=== PATIENT | male | born 1940 | race Caucasian/White ===

== ENCOUNTER 2016-05-28 06:26 | Day surgery (SDC) | payer MEDICARE, BC ==
[2016-05-21 13:57] VITALS: BMI 25.7
[~2016-05-28 06:26] MED LIST: ALPRAZolam 0.25 MG TAB PO PRN; ASPIRIN 325 MG TAB PO ONE; NITROGLYCERIN SL TABS 0.4 MG TAB SUBLINGUAL PRN; SODIUM CHLORIDE 0.9% 1,000 ML in EMPTY BAG 1 BAG IV ONE
[2016-05-28 07:04] VITALS: RESP 16; TEMP 98.3
[2016-05-28] MEDS ORDERED: LIDOCAINE 2% INJ 20 MG/ML (20 ML MDV) ONE (07:12)
[2016-05-28] MEDS ORDERED: diphenhydrAMINE 50 MG/ML 1 ML VIAL ONE (07:13)
[2016-05-28] MEDS ORDERED: VERAPAMIL 2.5 MG/ML 2 ML AMP ONE (07:13)
[2016-05-28] MEDS ORDERED: HEPARIN SODIUM 1,000 UNIT/ML VIAL ONE (07:13)
[2016-05-28] MEDS ORDERED: SODIUM CHLORIDE 0.9% (PF) 10 ML VIAL ONE (07:13)
[2016-05-28] MEDS ORDERED: fentaNYL (PF) 50 MCG/ML 2 ML AMP ONE (07:13)
[2016-05-28] MEDS ORDERED: diphenhydrAMINE 50 MG/ML 1 ML VIAL IVP ONE (07:45)
[2016-05-28] MEDS ORDERED: fentaNYL (PF) 50 MCG/ML 2 ML AMP IV ONE (07:45)
[2016-05-28] MEDS ORDERED: LIDOCAINE 2% INJ 20 MG/ML SQ ONE (07:48)
[2016-05-28] MEDS ORDERED: VERAPAMIL SYRINGE (5 MG/10 ML) INTRAARTER ONE (07:51)
[2016-05-28 07:52] LABS: Glucose,Whole Blood 176 mg/dL (75-99)
[2016-05-28] MEDS ORDERED: IOHEXOL 350 MG/ML 100 ML BOTTLE INJ ONE (08:01)
[2016-05-28] MEDS ORDERED: RX INFO: IV CONTRAST WAS GIVEN 1 EACH MISC MISCELLANE PRN (08:17)
[2016-05-28] MEDS ORDERED: CARBIDOPA-LEVODOPA 25-100 MG 1 EACH TAB PO SCH (08:30)
[2016-05-28] MEDS ORDERED: SODIUM CHLORIDE 0.9% 1,000 ML IV SCH (08:30)
[2016-05-28] MEDS ORDERED: GLIMEPIRIDE 1 MG TAB PO SCH (09:00)
[2016-05-28] MEDS ORDERED: ASPIRIN 81 MG CHEW PO SCH (09:00)
[2016-05-28] MEDS ORDERED: CHOLECALCIFEROL 1,000 UNIT TAB PO SCH (09:00)
[2016-05-28] MEDS ORDERED: NON-FORMULARY DRUG (Omeprazole [Omeprazole] 20 MG) PO SCH (09:00)
[2016-05-28] MEDS ORDERED: NON-FORMULARY DRUG (Cyanocobalamin (Vitamin B-12) [Vitamin B-12] 1,000 MCG) PO SCH (09:00)
[2016-05-28] MEDS ORDERED: ATORVASTATIN 40 MG TAB PO SCH (09:00)
[2016-05-28] MEDS ORDERED: METOPROLOL TARTRATE 25 MG TAB PO SCH (09:00)
[2016-05-28] MEDS ORDERED: ISOSORBIDE MONONITRATE ER 30 MG TAB.ER.24H PO SCH (09:00)
[2016-05-28 13:05] VITALS: BP 127/70; PULSE 60
--- NOTE | 2016-05-28 20:32 | CC ---
DATE OF SERVICE: Mr. Hauser 75-year-old male with known history of ( ), diabetes, hyperlipidemia, and a family history of coronary artery disease, who has been complaining of episode of progressive dyspnea as well as her throat discomfort. He had a stress test revealed an inferior wall fixed defect. In view of that, recommendation was made regarding cardiac catheterization. The procedure as well as the risks and complications were discussed with the patient who is in full understanding and agreement. 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 He was draped and prepped in conventional fashion. Using Xylocaine anesthesia and Seldinger technique, a 6 Divehi sheath was introduced in the right radial artery. Selective right and left coronary angiography was performed using 5 Divehi 3-1/2 Bend right and left Jourdan catheter. Multiple views of the coronary arteries including hemiaxial views were obtained. Following that, 5 Divehi tight pigtail catheter was introduced into the left ventricle and a 30 degrees NATH view of the left ventricle was obtained. Following that, catheter and sheaths were removed. Hemostasis was obtained with deployment of a TR band. There were no immediate complications. Patient is returned to his room in stable condition. FINDINGS: LEFT MAIN: This is a large-size vessel, bifurcating into the left circumflex, left anterior descending artery. Left main coronary artery is without any obstructive coronary artery disease. LEFT ANTERIOR DESCENDING CORONARY ARTERY: This is a large-size vessel reaching toward the apex with a wrap around the apex segment, giving rise to a large diagonal branch proximally. The left anterior descending artery has mild intimal disease 20% to 30% in the mid and distal segments without any evidence of high-grade stenosis. LEFT CIRCUMFLEX: This is a large nondominant vessel, giving rise to a large proximal obtuse marginal branch. The left circumflex and branches have no evidence of obstructive coronary artery disease. RIGHT CORONARY ARTERY: This vessel is totally occluded anteriorly with ipsilateral and contralateral collaterals. LEFT VENTRICULOGRAM: Left ventriculogram was performed in 30 degrees NATH view and revealed inferobasal hypokinesis. Ejection fraction is 45% to 50%. There was 2+ mitral regurgitation. HEMODYNAMICS: There was no gradient across the aortic valve. The left ventricular end-diastolic was 14 mmHg. CONCLUSION: 1. Chronically occluded right coronary artery was ipsilateral and contralateral collaterals. 2. Mild disease in the left anterior descending. 3. Mildly impaired left ventricular systolic function. RECOMMENDATIONS: In view of the findings and anatomy, recommend to maximize his medical therapy and depending on his progress, further recommendation will be made. Those findings and recommendations were discussed with the patient and his family who are in full understanding and agreement.
--- NOTE | 2016-05-28 20:44 | LTR ---
May 28, 2016 RE: Leandro Hauser Dear Dr. Gee: I had the pleasure of performing cardiac catheterization on Mr. Hauser at [facility] on the may. A full copy of procedure note will be forwarded to you. In brief, he was found to have chronically occluded right coronary artery with ipsilateral and contralateral collaterals with a mildly impaired left ventricular systolic function and based on those findings I will maximize his medical therapy and depending on his progress, further recommendation will be made. Thank you again for allowing me to participate in his care. Please feel to call for any questions. Sincerely, CONSUELO MUNOZ MD
[2016-05-28] MEDS ORDERED: CITALOPRAM HYDROBROMIDE 10 MG TAB PO SCH (21:00)
== END 2016-05-28 13:07 | disposition home or self-care (01) ==
LOC: CATHCVL 06:26
PROVIDERS: ATTEND Internal Medicine Interventional Cardiology
DX: I25.119 Atherosclerotic heart disease of native coronary artery with unspecified angina pectoris (principal); I34.0 Nonrheumatic mitral (valve) insufficiency; I25.82 Chronic total occlusion of coronary artery; I51.9 Heart disease, unspecified; Z87.891 Personal history of nicotine dependence; Z82.49 Family history of ischemic heart disease and other diseases of the circulatory system; E78.2 Mixed hyperlipidemia; G25.0 Essential tremor; E11.9 Type 2 diabetes mellitus without complications; Z79.84 Long term (current) use of oral hypoglycemic drugs; Z79.82 Long term (current) use of aspirin; Z79.899 Other long term (current) drug therapy; Z88.2 Allergy status to sulfonamides
CPT/HCPCS: 93458; C1894; C1769; J2001; J1200; Q9967; J3010; J1644

== ENCOUNTER → 2016-08-11 | Outpatient (CLI) | payer MEDICARE, BC ==
[2016-08-11 09:09] LABS: ALT 16 U/L (21-72); AST 20 U/L (17-59); Cholesterol 97 mg/dL (<200); HDL Cholesterol 29 mg/dL (40-60); Triglycerides 106 mg/dL (<150)
== END | disposition home or self-care (01) ==
LOC: LABWHC1 08:08
PROVIDERS: ATTEND Internal Medicine Interventional Cardiology
DX: E78.2 Mixed hyperlipidemia (principal)
CPT/HCPCS: 36415; 80061; 84450; 84460

== ENCOUNTER → 2017-02-05 | Outpatient (CLI) | payer MEDICARE, BC ==
[2017-02-05 09:08] LABS: ALT 23 U/L (21-72); AST 18 U/L (17-59); Alkaline Phosphatase 67 U/L (38-126); Anion Gap 9 mmol/L; Blood Urea Nitrogen 13 mg/dL (9-20); Calcium 9.1 mg/dL (8.4-10.2); Carbon Dioxide 29 mmol/L (22-30); Chloride 103 mmol/L (98-107); Cholesterol 97 mg/dL (<200); Glucose 163 mg/dL (74-99); HDL Cholesterol 33 mg/dL (40-60); Non-African American GFR(MDRD) >60 (>60 ml/min/1.73 sqM); Potassium 4.5 mmol/L (3.5-5.1); Sodium 141 mmol/L (137-145); Total Bilirubin 1.2 mg/dL (0.2-1.3); Total Protein 6.3 g/dL (6.3-8.2)
== END | disposition home or self-care (01) ==
LOC: LABWHC1 08:19
PROVIDERS: ATTEND Internal Medicine Interventional Cardiology
DX: E78.2 Mixed hyperlipidemia (principal)
CPT/HCPCS: 36415; 80053; 80061

== ENCOUNTER → 2017-07-29 | Outpatient (CLI) | payer MEDICARE ==
[2017-07-29 12:19] LABS: ALT 15 U/L (21-72); AST 15 U/L (17-59); Cholesterol 95 mg/dL (<200); HDL Cholesterol 36 mg/dL (40-60); LDL Cholesterol,Calculated 39 mg/dL (0-99); Triglycerides 102 mg/dL (<150)
== END | disposition home or self-care (01) ==
LOC: LABWHC1 11:48
PROVIDERS: ATTEND Internal Medicine Interventional Cardiology
DX: E78.2 Mixed hyperlipidemia (principal)
CPT/HCPCS: 36415; 80061; 84450; 84460

== ENCOUNTER 2017-12-16 07:19 | Day surgery (SDC) | payer MEDICARE ==
[2017-12-14 10:08] VITALS: BMI 26.4
[~2017-12-16 07:19] MED LIST changes: -ALPRAZolam 0.25 MG TAB PO PRN; -ASPIRIN 325 MG TAB PO ONE; +LACTATED RINGERS 1,000 ML IV SCH; +MOXIFLOXACIN HCL 0.5% DROPS 3 ML BTL OP ONE; -NITROGLYCERIN SL TABS 0.4 MG TAB SUBLINGUAL PRN; -SODIUM CHLORIDE 0.9% 1,000 ML in EMPTY BAG 1 BAG IV ONE; +TETRACAINE 0.5% OPHTH (PF) DROPS 4 ML BTL OP ONE; +TIMOLOL 0.5% OPHTH DROPS 5 ML BTL OP ONE
[2017-12-16] MEDS: PHENYLEPHRINE 2.5% OPHTH DRP 2ML OP NR ×3 (07:56→08:13)
[2017-12-16] MEDS: CYCLOPENTOLATE 1% OPHTH SOLN 2 ML BTL OP ONE ×3 (08:02→08:15)
[2017-12-16 08:06] VITALS: RESP 16; TEMP 98.8
[2017-12-16 08:07] LABS: Glucose,Whole Blood 157 mg/dL (75-99)
[2017-12-16] MEDS ORDERED: fentaNYL (PF) 50 MCG/ML 2 ML AMP ONE (08:57)
[2017-12-16] MEDS ORDERED: MIDAZOLAM 2 MG/2 ML VIAL ONE (08:57)
[2017-12-16] MEDS ORDERED: BALANCED SALT IRRIG SOLN COMB2 15 ML IRRIG.SOLN INTRAOCULA ONE (09:06)
[2017-12-16] MEDS ORDERED: TETRACAINE 0.5% OPHTH (PF) DROPS 4 ML BTL RIGHT EYE ONE (09:06)
[2017-12-16] MEDS ORDERED: HYALURONATE SODIUM INTRAOCULAR 1 EACH SYRINGE (12MG/ML) INTRAOCULA ONE (09:07)
[2017-12-16] MEDS ORDERED: EPINEPHrine (PF) 0.3 ML in BALANCED SALT IRRIG SOLN COMB2 500 ML IRRIGATION ONE (09:08)
[2017-12-16] MEDS ORDERED: BALANCED SALT IRRIG SOLN COMB2 15 ML IRRIG.SOLN IRRIGATION ONE (09:13)
[2017-12-16] MEDS ORDERED: EPINEPHrine (PF) 1 MG/ML AMP IRRIGATION ONE (09:13)
[2017-12-16] MEDS ORDERED: LIDOCAINE 1% (PF) 10MG/ML VIAL MISCELLANE ONE (09:13)
--- NOTE | 2017-12-16 09:23 | P.OP ---
Date of Procedure: 12/16/17 Preoperative Diagnosis: NS & CS Postoperative Diagnosis: same Procedure(s) Performed: PIOL, OD Implants: PCB0 18.00 Anesthesia: MAC Surgeon: Jude Biggs Estimated Blood Loss (ml): 0 Pathology: none sent Condition: stable Disposition: same day Indications for Procedure: blurry vision Operative Findings: No complications
[2017-12-16 09:30] VITALS: PULSE 69
[2017-12-16 09:53] VITALS: BP 109/59
--- NOTE | 2017-12-16 10:00 | OP ---
OPERATIVE REPORT DATE OF SURGERY: 12/16/2017 PROCEDURES: Phacoemulsification of cataract and intraocular lens implant of the right eye. PREOPERATIVE DIAGNOSIS: Nuclear sclerosis and cortical sclerosis. POSTOPERATIVE DIAGNOSIS:: Nuclear sclerosis and cortical sclerosis. OPERATION:: Clear cornea phacoemulsification of cataract right eye. ESTIMATED BLOOD LOSS:: Zero. SPECIMEN TAKEN:: None. NARRATIVE:: After obtaining the appropriate consent, the patient was brought to the Operating Room where the patient was placed under cardiac monitoring and prepped and draped in the usual sterile manner. At the 11 o'clock position a 15 degree super sharp blade was used to create a paracentesis followed by instillation of 1% Xylocaine MPF 50:50 mix with BSS into the anterior chamber. This was followed by to stabilize the anterior chamber. At the 9 o'clock position a self-sealing corneal flap incision was created using 2.8 mm rebecca keratome. A cystatome was used to initiate a continuous tear capsulorrhexis which was completed with the Utrata forceps. A Binkhorst cannula was used to hydrodissect the lens nucleus followed by hydrodelineation. Phacoemulsification of the lens was performed utilizing phacochop in 15.36 seconds at 8% power. The remaining cortical material was removed using the irrigation aspiration mode followed by additional 1% Xylocaine MPF into the anterior chamber followed by viscoelastic to stabilize the capsular bag. An KEREN PCB00 18.0 diopters posterior chamber lens was placed into the capsular bag without difficulty. The remaining viscoelastic material was removed from the anterior chamber with the irrigation/aspiration. Balanced salt solution was used to normalize the intraocular pressure. The incision was checked for watertight integrity. The patient then received two drops of 0.5% timolol followed by two drops Vigamox, was lightly patched and shielded in the usual manner. There were no complications from the procedure. The patient tolerated the procedure well and was returned to recovery in good condition. MMODL / IJN: [id number] /
== END 2017-12-16 10:18 | disposition home or self-care (01) ==
LOC: OR 07:19
PROVIDERS: ATTEND Ophthalmology
DX: H25.13 Age-related nuclear cataract, bilateral (principal); H25.011 Cortical age-related cataract, right eye; E11.3291 Type 2 diabetes mellitus with mild nonproliferative diabetic retinopathy without macular edema, right eye; H53.032 Strabismic amblyopia, left eye; H52.13 Myopia, bilateral; H04.123 Dry eye syndrome of bilateral lacrimal glands; H00.026 Hordeolum internum left eye, unspecified eyelid; H00.023 Hordeolum internum right eye, unspecified eyelid; H54.40 Blindness, one eye, unspecified eye; F32.9 Major depressive disorder, single episode, unspecified; I25.10 Atherosclerotic heart disease of native coronary artery without angina pectoris; I11.9 Hypertensive heart disease without heart failure; E78.5 Hyperlipidemia, unspecified; K21.9 Gastro-esophageal reflux disease without esophagitis; I25.2 Old myocardial infarction; Z79.84 Long term (current) use of oral hypoglycemic drugs; Z79.82 Long term (current) use of aspirin; Z79.899 Other long term (current) drug therapy; Z88.2 Allergy status to sulfonamides; Z87.891 Personal history of nicotine dependence
CPT/HCPCS: 66984; C1780; J2250; J0171; J3010; J2001

== ENCOUNTER → 2018-02-24 | Outpatient (CLI) | payer MEDICARE ==
[2018-02-24 12:03] LABS: Basophils # (A) 0.1 k/uL (0-0.2); Basophils % (A) 1 %; Eosinophils # (A) 0.2 k/uL (0-0.7); Eosinophils % (A) 3 %; HCT 51.5 % (39.0-53.0); HGB 16.8 gm/dL (13.0-17.5); Lymphocytes # (A) 1.8 k/uL (1.0-4.8); Lymphocytes % (A) 23 %; MCH 28.5 pg (25.0-35.0); MCHC 32.6 g/dL (31.0-37.0); MCV 87.4 fL (80.0-100.0); Mean Platelet Volume 8.2; Monocytes # (A) 0.5 k/uL (0-1.0); Monocytes % (A) 6 %; Neutrophils # (A) 5.1 k/uL (1.3-7.7); Neutrophils % (A) 65 %; Platelet Count 253 k/uL (150-450); RBC 5.89 m/uL (4.30-5.90); RDW 13.2 % (11.5-15.5); WBC 7.8 k/uL (3.8-10.6)
[2018-02-24 12:31] LABS: Calcium 9.7 mg/dL (8.4-10.2); Potassium 4.6 mmol/L (3.5-5.1); Total Bilirubin 1.2 mg/dL (0.2-1.3); Total Protein 6.8 g/dL (6.3-8.2)
[2018-02-24 12:41] LABS: T4, Free (Free Thyroxine) 1.07 ng/dL (0.78-2.19)
[2018-02-24 19:11] LABS: Hemoglobin A1C 7.8 % (4.0-6.0)
== END | disposition home or self-care (01) ==
LOC: LABWHC1 10:17
PROVIDERS: ATTEND Internal Medicine Interventional Cardiology
DX: G20 Parkinson's disease (principal); E78.00 Pure hypercholesterolemia, unspecified; E11.9 Type 2 diabetes mellitus without complications; E78.2 Mixed hyperlipidemia
CPT/HCPCS: 36415; 80053; 80061; 83036; 84439; 84443; 85025

== ENCOUNTER → 2018-06-08 | Outpatient (CLI) | payer MEDICARE ==
--- NOTE | 2018-06-08 12:50 | MR ---
MR brain without contrast HISTORY: Parkinson's disease Multiplanar multisequence imaging through the brain There are normal vascular flow voids. Atrophy is noted. Scattered foci of hyperintensity in the periv entricular deep white matter on inversion recovery T2-weighted sequences, approximately 3-5 lesions a re present. No hemorrhage or hydrocephalus. Inflammatory change present in the bilateral maxillary si nuses, there may be polyp disease. Orbits show symmetric appearance. Corpus callosum, pituitary, cerv ical medullary junction, cerebellopontine angles are normal. IMPRESSION: Nonspecific white matter demyelination likely due to chronic small vessel ischemia, age r elated atrophy. Sinus disease.
== END | disposition home or self-care (01) ==
LOC: RADMRIMAIN 08:50
PROVIDERS: ATTEND Psychiatry & Neurology Neurology
DX: R90.89 Other abnormal findings on diagnostic imaging of central nervous system (principal); G20 Parkinson's disease
CPT/HCPCS: 70551

== ENCOUNTER → 2018-09-27 | Outpatient (CLI) | payer MEDICARE ==
[2018-09-27 17:19] LABS: LDL Cholesterol,Calculated 52.6 mg/dL (0.0-131.0); VLDL Calculation 32.4 mg/dL (5.00-40.00)
== END | disposition home or self-care (01) ==
LOC: LABWHC1 08:32
PROVIDERS: ATTEND Nurse Practitioner Adult Health
DX: E78.2 Mixed hyperlipidemia (principal)
CPT/HCPCS: 36415; 80061; 84450; 84460

== ENCOUNTER → 2019-03-09 | Outpatient (CLI) | payer MEDICARE ==
[2019-03-09 18:36] LABS: Chol/HDL Ratio 3.41; LDL Cholesterol,Calculated 50.4 mg/dL (0.0-131.0); VLDL Calculation 26.6 mg/dL (5.00-40.00)
== END | disposition home or self-care (01) ==
LOC: LABWHC1 10:38
PROVIDERS: ATTEND Nurse Practitioner Adult Health
DX: E78.2 Mixed hyperlipidemia (principal)
CPT/HCPCS: 36415; 80061; 84450; 84460

== ENCOUNTER → 2020-03-12 | Outpatient (CLI) | payer MEDICARE ==
[~2020-03-12] MED LIST changes: -LACTATED RINGERS 1,000 ML IV SCH; -MOXIFLOXACIN HCL 0.5% DROPS 3 ML BTL OP ONE; +REGADENOSON 0.4 MG/5 ML SYRINGE IV ONE; -TETRACAINE 0.5% OPHTH (PF) DROPS 4 ML BTL OP ONE; -TIMOLOL 0.5% OPHTH DROPS 5 ML BTL OP ONE
--- NOTE | 2020-03-12 12:42 | NM ---
EXAMINATION TYPE: NM stress lexiscan cardiolite DATE OF EXAM: 03/12/2020 COMPARISON: NONE HISTORY: Chest pain TECHNIQUE: After the intravenous administration of 10.69 mCi Tc 99m Sestamibi - Cardiolite resting S PECT images acquired 45 minutes post injection. The patient received 0.4mg Lexiscan, 24.4 mCi Tc 99m Sestamibi - Stress images obtained [address] injection FINDINGS: Review of stress and rest SPECT images demonstrates decreased uptake on stress and rest images along the inferior wall the left ventricle, some decreased uptake is present along the inferolateral left v entricle towards the base of the heart more so on stress than on rest images. Gated analysis shows n ormal wall motion with an estimated left ventricular ejection fraction of 72 %. 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 Consider echo correlation for eleva mckenna ejection fraction A Yellow level critical message alert has been initiated for Jay Gee MD via the [employer] Critical Results System on 03/12/2020 12:39 PM. This message alert has been sent to Jay Gee MD v chiqui the preferences provided by the clinician for the receipt of Radiology Critical Findings. Message ID [id number].
--- NOTE | 2020-03-12 13:54 | P.STRESS ---
- Stress Test Note Stress Test Results/Findings: Exam Performed: NM stress lexiscan cardiolite Exam Date: 03/12/20 Reason for Exam: CHEST PAIN Height: 5 ft 11 in Weight: 81.8 kg Protocol: LEXISCAN Stage: N/A Duration of Exercise: 6 MINUTES Resting Heart Rate: 59 Resting Blood Pressure: 152/82 Maximum Achieved Heart Rate: 80 Maximum Achieved Blood Pressure: 152/82 85% PMHR: N/A 100% PMHR: N/A METS: N/A Technologist Comment: Stress Test Results/Findings: At baseline EKG showed normal sinus rhythm,normal axis, nonspecific T-wave inversions in aVR and V1. Patient recieved IV infusion of Lexiscan 0.4mg and at peak infusion EKG showed o significant change from baseline. Conclusions: 1. Normal EKG response to Lexiscan infusion 2. Nuclear imaging to be reported separately.
== END | disposition home or self-care (01) ==
LOC: RADNMMAIN 08:34
PROVIDERS: ATTEND Internal Medicine Geriatric Medicine
DX: R07.9 Chest pain, unspecified (principal)
CPT/HCPCS: 93017; 78452; A9500; J2785

== ENCOUNTER → 2020-03-29 | Outpatient (CLI) | payer MEDICARE ==
--- NOTE | 2020-03-29 17:50 | ECHOF ---
Referral Reason:R94.31 abnormal EKG report MEASUREMENTS -------- HEIGHT: 180.3 cm WEIGHT: 81.6 kg BP: RVIDd: 2.7 cm (< 3.3) IVSd: 1.2 cm (0.6 - 1.1) LVIDd: 4.4 cm (3.9 - 5.3) LVPWd: 1.5 cm (0.6 - 1.1) IVSs: 2.2 cm LVIDs: 2.0 cm LVPWs: 2.2 cm LAESV Index (A-L): 24.36 ml/m Ao Diam: 3.6 cm (2.0 - 3.7) AV Cusp: 2.1 cm (1.5 - 2.6) LA Diam: 2.9 cm (2.7 - 3.8) MV EXCURSION: 19.027 mm (> 18.000) MV EF SLOPE: 36 mm/s (70 - 150) EPSS: 0.4 cm MV E Juan Carlos: 0.85 m/s MV DecT: 256 ms MV A Juan Carlos: 0.74 m/s MV E/A Ratio: 1.16 AR PHT: 871 ms RAP: 5.00 mmHg RVSP: 17.14 mmHg FINDINGS -------- This was a technically good study. The left ventricular size is normal. There is mild concentric left ventricular hypertrophy. Overa ll left ventricular systolic function is normal with, an EF between 55 - 60 %. Normal LAP Grade 1 D iastolic Dysfunction The right ventricle is normal in size. The left atrial size is normal. Normal LA size by volume 22+/-6 ml/m2. The right atrial size is normal. Aortic valve is trileaflet and is mildly thickened. There is mild aortic regurgitation. The mitral valve is normal. Mild mitral regurgitation is present. The tricuspid valve appears structurally normal. Mild tricuspid regurgitation present. Right vent ricular systolic pressure is normal at < 35 mmHg. There is no pulmonic regurgitation present. The aortic root size is normal. Normal inferior vena cava with normal inspiratory collapse consistent with estimated right atrial pre ssure of 5 mmHg. Echo free space may represent effusion or a pericardial fat pad. CONCLUSIONS -------- 1. The left ventricular size is normal. 2. There is mild concentric left ventricular hypertrophy. 3. Overall left ventricular systolic function is normal with, an EF between 55 - 60 %. 4. Normal LAP Grade 1 Diastolic Dysfunction 5. Aortic valve is trileaflet and is mildly thickened. 6. There is mild aortic regurgitation. 7. Mild mitral regurgitation is present. 8. Mild tricuspid regurgitation present. 9. Echo free space may represent effusion or a pericardial fat pad. LATHER APPRENTICE: Елена Chiu RDCS
== END | disposition home or self-care (01) ==
LOC: RADECHMAIN 12:36
PROVIDERS: ATTEND Internal Medicine Geriatric Medicine
DX: I08.3 Combined rheumatic disorders of mitral, aortic and tricuspid valves (principal)
CPT/HCPCS: 93306

== ENCOUNTER 2020-06-08 11:15 | Inpatient (IN) | payer MEDICARE ==
--- NOTE | 2020-06-08 11:45 | ED ---
General Adult HPI - General Chief complaint: Shortness of Breath Stated complaint: water retention-sent by PCP Time Seen by Provider: 06/08/20 11:20 Source: patient, RN/MD, RN notes reviewed Mode of arrival: wheelchair Limitations: no limitations - History of Present Illness Initial comments: Patient is a pleasant 79-year-old male presenting to the emergency Department with urinary retention and shortness of breath. Onset of symptoms was a couple months ago. Symptoms have slowly progressed. Patient has developed some swelling of his legs. Patient states he still able to urinate but only a small amount comes out. Dyspnea does worsen with exertion. No chest pain. Patient has been somewhat fatigued. Patient did see Dr. Gee who advised patient come to the emergency department. - Related Data Home Medications Medication Instructions Recorded Confirmed Aspirin 81 mg PO DAILY 10/20/13 06/08/20 Metoprolol Tartrate [Lopressor] 25 mg PO BID 05/21/16 06/08/20 Atorvastatin [Lipitor] 40 mg PO HS 12/14/17 06/08/20 Glimepiride [Amaryl] 4 mg PO BID 12/14/17 06/08/20 Isosorbide Mononitrate ER [Imdur] 60 mg PO DAILY 12/14/17 06/08/20 metFORMIN HCL [Glucophage] 500 mg PO BID 12/14/17 06/08/20 ALPRAZolam [Xanax] 0.25 mg PO BID PRN 06/08/20 06/08/20 Bumetanide [BUMEX] 2 mg PO DAILY 06/08/20 06/08/20 Carbidopa-Levodopa 25-100 mg 1 tab PO QID 06/08/20 06/08/20 [Sinemet 25-100] Donepezil [Aricept] 10 mg PO HS 06/08/20 06/08/20 Escitalopram [Lexapro] 20 mg PO DAILY 06/08/20 06/08/20 Nitroglycerin Sl Tabs [Nitrostat] 0.4 mg SL Q5M PRN 06/08/20 06/08/20 Spironolactone [Aldactone] 25 mg PO DAILY 06/08/20 06/08/20 amantadine HCL [Amantadine] 100 mg PO BID 06/08/20 06/08/20 Allergies Allergy/AdvReac Type Severity Reaction Status Date / Time Sulfa (Sulfonamide Allergy Rash/Hives Verified 06/08/20 11:20 Antibiotics) Review of Systems ROS Statement: Those systems with pertinent positive or pertinent negative responses have been documented in the HPI. ROS Other: All systems not noted in ROS Statement are negative. Constitutional: Denies: fever Eyes: Denies: eye pain ENT: Denies: ear pain Respiratory: Reports: dyspnea. Denies: cough Cardiovascular: Denies: chest pain Endocrine: Reports: fatigue Gastrointestinal: Denies: abdominal pain Genitourinary: Reports: as per HPI Musculoskeletal: Denies: back pain Skin: Denies: rash Past Medical History Past Medical History: Heart Failure, Diabetes Mellitus, Eye Disorder, GERD/Reflux, Hyperlipidemia, Hypertension, Musculoskeletal Disorder Additional Past Medical History / Comment(s): SHORTNESS OF BREATH, bilat cataracts History of Any Multi-Drug Resistant Organisms: None Reported Past Surgical History: Orthopedic Surgery Additional Past Surgical History / Comment(s): RT HAND CYST REMOVED. LT EYE SX R/T MUSCLE PROB. COLONOSCOPY. Past Anesthesia/Blood Transfusion Reactions: No Reported Reaction Past Psychological History: Depression Smoking Status: Never smoker Past Alcohol Use History: None Reported Past Drug Use History: None Reported - Past Family History Mother Family Medical History: Coronary Artery Disease (CAD) Additional Family Medical History / Comment(s): HX CABG, VALVE REPLACEMENT. General Exam Limitations: no limitations General appearance: alert, in no apparent distress Head exam: Present: normocephalic Eye exam: Present: normal appearance Neck exam: Present: normal inspection Respiratory exam: Present: decreased breath sounds (Bilateral bases) Cardiovascular Exam: Present: regular rate, normal rhythm GI/Abdominal exam: Present: soft. Absent: tenderness Extremities exam: Present: pedal edema. Absent: calf tenderness Neurological exam: Present: alert Psychiatric exam: Present: normal affect, normal mood Skin exam: Present: normal color Course Vital Signs 06/08/20 06/08/20 06/08/20 11:17 13:31 13:46 Temperature 98.6 F Pulse Rate 65 67 Respiratory 22 16 20 Rate Blood Pressure 146/72 108/74 O2 Sat by Pulse 97 98 Oximetry EKG Findings - EKG Comments: EKG Findings:: Normal sinus rhythm at 70. ID 200. QRS 96. QT 390. QTC 421. Normal axis. Normal QRS. No acute ST change. Medical Decision Making - Medical Decision Making Patient reevaluated and updated. Case was again discussed with Dr. Gee who would like his patient admitted. - Lab Data Result diagrams: 06/08/20 11:41 06/08/20 11:41 Lab Results 06/08/20 06/08/20 06/08/20 Range/Units 11:41 11:41 11:41 WBC 9.0 (3.8-10.6) k/uL RBC 4.95 (4.30-5.90) m/uL Hgb 14.9 (13.0-17.5) gm/dL Hct 43.4 (39.0-53.0) % MCV 87.8 (80.0-100.0) fL MCH 30.1 (25.0-35.0) pg MCHC 34.3 (31.0-37.0) g/dL RDW 13.2 (11.5-15.5) % Plt Count 255 (150-450) k/uL MPV 8.3 Neutrophils % 68 % Lymphocytes % 19 % Monocytes % 8 % Eosinophils % 3 % Basophils % 1 % Neutrophils # 6.1 (1.3-7.7) k/uL Lymphocytes # 1.7 (1.0-4.8) k/uL Monocytes # 0.7 (0-1.0) k/uL Eosinophils # 0.3 (0-0.7) k/uL Basophils # 0.1 (0-0.2) k/uL PT 10.4 (9.0-12.0) sec INR 1.0 (<1.2) APTT 22.2 (22.0-30.0) sec Sodium 138 (137-145) mmol/L Potassium 3.8 (3.5-5.1) mmol/L Chloride 96 L (98-107) mmol/L Carbon Dioxide 31 H (22-30) mmol/L Anion Gap 11 mmol/L BUN 34 H (9-20) mg/dL Creatinine 1.09 (0.66-1.25) mg/dL Est GFR (CKD-EPI)AfAm 74 (>60 ml/min/1.73 sqM) Est GFR (CKD-EPI)NonAf 64 (>60 ml/min/1.73 sqM) Glucose 298 H (74-99) mg/dL Calcium 9.3 (8.4-10.2) mg/dL Total Bilirubin 0.8 (0.2-1.3) mg/dL AST 25 (17-59) U/L ALT 10 (4-49) U/L Alkaline Phosphatase 90 (38-126) U/L Creatine Kinase 126 (55-170) U/L Troponin I (0.000-0.034) ng/mL NT-Pro-B Natriuret Pep pg/mL Total Protein 7.0 (6.3-8.2) g/dL Albumin 4.4 (3.5-5.0) g/dL Urine Color Urine Appearance (Clear) Urine pH (5.0-8.0) Ur Specific [place] (1.001-1.035) Urine Protein (Negative) Urine Glucose (UA) (Negative) Urine Ketones (Negative) Urine Blood (Negative) Urine Nitrite (Negative) Urine Bilirubin (Negative) Urine Urobilinogen (<2.0) mg/dL Ur Leukocyte Esterase (Negative) 06/08/20 06/08/20 06/08/20 Range/Units 11:41 11:41 11:41 WBC (3.8-10.6) k/uL RBC (4.30-5.90) m/uL Hgb (13.0-17.5) gm/dL Hct (39.0-53.0) % MCV (80.0-100.0) fL MCH (25.0-35.0) pg MCHC (31.0-37.0) g/dL RDW (11.5-15.5) % Plt Count (150-450) k/uL MPV Neutrophils % % Lymphocytes % % Monocytes % % Eosinophils % % Basophils % % Neutrophils # (1.3-7.7) k/uL Lymphocytes # (1.0-4.8) k/uL Monocytes # (0-1.0) k/uL Eosinophils # (0-0.7) k/uL Basophils # (0-0.2) k/uL PT (9.0-12.0) sec INR (<1.2) APTT (22.0-30.0) sec Sodium (137-145) mmol/L Potassium (3.5-5.1) mmol/L Chloride (98-107) mmol/L Carbon Dioxide (22-30) mmol/L Anion Gap mmol/L BUN (9-20) mg/dL Creatinine (0.66-1.25) mg/dL Est GFR (CKD-EPI)AfAm (>60 ml/min/1.73 sqM) Est GFR (CKD-EPI)NonAf (>60 ml/min/1.73 sqM) Glucose (74-99) mg/dL Calcium (8.4-10.2) mg/dL Total Bilirubin (0.2-1.3) mg/dL AST (17-59) U/L ALT (4-49) U/L Alkaline Phosphatase (38-126) U/L Creatine Kinase (55-170) U/L Troponin I <0.012 (0.000-0.034) ng/mL NT-Pro-B Natriuret Pep 180 pg/mL Total Protein (6.3-8.2) g/dL Albumin (3.5-5.0) g/dL Urine Color Colorless Urine Appearance Clear (Clear) Urine pH 5.5 (5.0-8.0) Ur Specific [place] 1.006 (1.001-1.035) Urine Protein Negative (Negative) Urine Glucose (UA) 3+ H (Negative) Urine Ketones Negative (Negative) Urine Blood Negative (Negative) Urine Nitrite Negative (Negative) Urine Bilirubin Negative (Negative) Urine Urobilinogen <2.0 (<2.0) mg/dL Ur Leukocyte Esterase Negative (Negative) - Radiology Data Radiology results: image reviewed (Chest x-ray shows no acute process) Disposition Clinical Impression: Urinary retention, COPD (chronic obstructive pulmonary disease), Dyspnea Disposition: ADMITTED IP TO THIS HOSP Is patient prescribed a controlled substance at d/c from ED?: No Referrals: Jay Gee MD [Primary Care Provider] - 1-2 days Decision Time: 14:26
[2020-06-08 11:58] LABS: Basophils # (A) 0.1 k/uL (0-0.2); Basophils % (A) 1 %; Eosinophils # (A) 0.3 k/uL (0-0.7); Eosinophils % (A) 3 %; HCT 43.4 % (39.0-53.0); HGB 14.9 gm/dL (13.0-17.5); Lymphocytes # (A) 1.7 k/uL (1.0-4.8); Lymphocytes % (A) 19 %; MCH 30.1 pg (25.0-35.0); MCHC 34.3 g/dL (31.0-37.0); MCV 87.8 fL (80.0-100.0); Mean Platelet Volume 8.3; Monocytes # (A) 0.7 k/uL (0-1.0); Monocytes % (A) 8 %; Neutrophils # (A) 6.1 k/uL (1.3-7.7); Neutrophils % (A) 68 %; Platelet Count 255 k/uL (150-450); RBC 4.95 m/uL (4.30-5.90); RDW 13.2 % (11.5-15.5)
[2020-06-08 12:03] LABS: Appearance,Urine Clear (Clear); Bilirubin,Urine Negative (Negative); Blood,Urine Negative (Negative); Color,Urine Colorless; Glucose,Urine (UA) 3+ (Negative); Ketones,Urine Negative (Negative); Leukocyte Esterase,Urine Negative (Negative); Nitrite,Urine Negative (Negative); PH, Urine 5.5 (5.0-8.0); Protein,Urine Negative (Negative); Specific Gravity,Urine 1.006 (1.001-1.035); Urobilinogen,Urine <2.0 mg/dL (<2.0)
[2020-06-08 12:08] LABS: Partial Thromboplastin Time 22.2 sec (22.0-30.0); Prothrombin Time 10.4 sec (9.0-12.0)
[2020-06-08 12:09] LABS: Albumin 4.4 g/dL (3.5-5.0); Calcium 9.3 mg/dL (8.4-10.2); Potassium 3.8 mmol/L (3.5-5.1); Total Bilirubin 0.8 mg/dL (0.2-1.3)
--- NOTE | 2020-06-08 12:19 | XR ---
EXAMINATION TYPE: XR chest 2V DATE OF EXAM: 06/08/2020 COMPARISON: Chest CT August 28, 2016 HISTORY: Shortness of breath and lower extremity swelling. TECHNIQUE: Frontal and lateral views of the chest are obtained. FINDINGS: There is mild underlying emphysematous change without suspicious new focal air space opaci ty, pleural effusion, or pneumothorax seen. The cardiac silhouette size is stable and within normal limits. Mild to moderate multilevel spurring in the spine. IMPRESSION: No acute cardiopulmonary process.
[2020-06-08] MEDS ORDERED: IPRATROPIUM-ALBUTEROL 3 ML NEB INHALATION PRN (14:35)
[2020-06-08] MEDS ORDERED: CYCLOBENZAPRINE 5 MG TAB PO STA (14:47)
[2020-06-08] MEDS ORDERED: NITROGLYCERIN SL TABS 0.4 MG TAB SUBLINGUAL PRN (16:04)
[2020-06-08] MEDS ORDERED: ALPRAZolam 0.25 MG TAB PO PRN (16:04)
[2020-06-08] MEDS: metFORMIN 500 MG TAB PO SCH (17:13)
[2020-06-08] MEDS: CARBIDOPA-LEVODOPA 25-100 MG 1 EACH TAB PO SCH ×2 (17:13→23:30)
[2020-06-08 17:42] LABS: Glucose,Whole Blood 122 mg/dL (75-99)
[2020-06-08] MEDS: IPRATROPIUM-ALBUTEROL 3 ML NEB INHALATION SCH ×2 (20:09→20:53)
[2020-06-08 22:26] LABS: Glucose,Whole Blood 131 mg/dL (75-99)
[2020-06-08] MEDS: HEPARIN SODIUM,PORCINE 5,000 UNIT/ML 1 ML VIAL SQ SCH (22:35)
[2020-06-08] MEDS: FUROSEMIDE 10 MG/ML 4 ML VIAL IV SCH (22:35)
[2020-06-08] MEDS: ATORVASTATIN 40 MG TAB PO SCH (22:35)
[2020-06-08] MEDS: DONEPEZIL 10 MG TAB PO SCH (23:31)
[2020-06-08] MEDS: GLIMEPIRIDE 4 MG TAB PO SCH (23:31)
--- NOTE | 2020-06-08 23:35 | P.HPIM ---
History of Present Illness H&P Date: 06/08/20 Chief Complaint: Altered mental status, urinary retention, fluid overload, a dvanced [facility] 79-year-old male one of my office patient with past medical history of atherosclerotic heart disease, type 2 diabetes, Parkinson disease, hypertension, severe BPH who has been having significant problem with mobility lately with abnormal balance and gait developed to have worsening mental status in the last few days with low-grade temperature with frequency urgency with more hesitancy not been able to pass much urine at the time. Patient also has been having problem with edema and worsening symptom with congestive heart failure has not been taking his diuretics on regular basis. Patient has been having much worsening memory is Parkinson disease multiple falls lately, was seen and evaluated demurs department had significant urinary retention with Roberts catheter insertion had 850 mL collected right away his blood sugars mildly elevated urine was negative for infection blood sugar was mildly high at 298, his troponin was negative, Covid 19 was negative. Review of Systems CONSTITUTIONAL: Well-developed no acute respiratory distress. EYES: No icterus sclerae, no conjunctivitis. EARS, NOSE, MOUTH, THROAT, and FACE: No sore throat, lymphadenopathy, carotid bruits or deformity. RESPIRATORY: No SOB cough or wheezes. CARDIOVASCULAR: No chest pain positive PND, orthopnea and edema GASTROINTESTINAL: No Abd pain, Nausea or vomiting, no Diarrhea or constipation, No GI Bleed, no distention or masses. GENITOURINARY: Negative for Hematuria or UTI, no kidney stones. INTEGUMENT/BREAST: Negative for any muscular injury with mild osteoarthritis.. HEMATOLOGIC/LYMPHATIC: Negative for bleed or purpura. MUSCULOSKELTAL: Negative for Myalgia or arthralgia. NEURLOGICAL: Mental status change, abnormal balance and gait, worsening Parkinson disease BEHAVIORAL/PSYCH: Mild confusion and worsening memory. ENDOCRINE: Negative. Social history: Patient smoked pack a day for 20 years he quit in 1983, does not drink alcohol, is and lives with his has been retired for the last 15 years. Family history: Patient's father in his late 80s from CAD and advance memory loss, mother dying in her 70s from was remarkable for cancer, patient has 2 children with no major medical problem. Past Medical History Past Medical History: Heart Failure, Diabetes Mellitus, Eye Disorder, GERD/Reflux, Hyperlipidemia, Hypertension, Musculoskeletal Disorder Additional Past Medical History / Comment(s): SHORTNESS OF BREATH, bilat cataracts History of Any Multi-Drug Resistant Organisms: None Reported Past Surgical History: Orthopedic Surgery Additional Past Surgical History / Comment(s): RT HAND CYST REMOVED. LT EYE SX R/T MUSCLE PROB. COLONOSCOPY. Past Anesthesia/Blood Transfusion Reactions: No Reported Reaction Past Psychological History: Depression Smoking Status: Never smoker Past Alcohol Use History: None Reported Past Drug Use History: None Reported - Past Family History Mother Family Medical History: Coronary Artery Disease (CAD) Additional Family Medical History / Comment(s): HX CABG, VALVE REPLACEMENT. Medications and Allergies Home Medications Medication Instructions Recorded Confirmed Type Aspirin 81 mg PO DAILY 10/20/13 06/08/20 History Metoprolol Tartrate [Lopressor] 25 mg PO BID 05/21/16 06/08/20 History Atorvastatin [Lipitor] 40 mg PO HS 12/14/17 06/08/20 History Glimepiride [Amaryl] 4 mg PO BID 12/14/17 06/08/20 History Isosorbide Mononitrate ER [Imdur] 60 mg PO DAILY 12/14/17 06/08/20 History metFORMIN HCL [Glucophage] 500 mg PO BID 12/14/17 06/08/20 History ALPRAZolam [Xanax] 0.25 mg PO BID PRN 06/08/20 06/08/20 History Bumetanide [BUMEX] 2 mg PO DAILY 06/08/20 06/08/20 History Carbidopa-Levodopa 25-100 mg 1 tab PO QID 06/08/20 06/08/20 History [Sinemet 25-100] Donepezil [Aricept] 10 mg PO HS 06/08/20 06/08/20 History Escitalopram [Lexapro] 20 mg PO DAILY 06/08/20 06/08/20 History Nitroglycerin Sl Tabs [Nitrostat] 0.4 mg SL Q5M PRN 06/08/20 06/08/20 History Spironolactone [Aldactone] 25 mg PO DAILY 06/08/20 06/08/20 History amantadine HCL [Amantadine] 100 mg PO BID 06/08/20 06/08/20 History Allergies Allergy/AdvReac Type Severity Reaction Status Date / Time Sulfa (Sulfonamide Allergy Rash/Hives Verified 06/08/20 11:20 Antibiotics) Physical Exam Vitals: Vital Signs Temp Pulse Resp BP Pulse Ox 06/08/20 13:46 20 06/08/20 13:31 67 16 108/74 98 06/08/20 11:17 98.6 F 65 22 146/72 97 Intake and Output 06/08/20 06/08/20 06/08/20 06:59 14:59 22:59 Output Total 825 Balance -825 Output: Urine 825 Other: Weight 83.915 kg General Appearance: Alert, cooperative, no distress, appears stated age. Neck HEENT: Supple, no lymphadenopathy, no thyroid enlargement, no carotid bruits. Lungs: Decreased expansion bilaterally with fine rhonchi positive mild expiratory wheezes with crackles in the bases. Chest Wall: Decrease expansion with deep inspiration no tenderness and no deformity was found on exam, no costochondral pain or discomfort. Heart: Regular rate and rhythm, S1, S2 normal, positive S3 with systolic murmur. Back: Symmetric, no curvature, ROM normal, no CVA tenderness. Abdomen: Soft possible sound no organomegaly slight ascites with mild anasarca. Extremities: Extremities normal, atraumatic, no cyanosis 2+ edema. Pulses: 2+ and symmetric. Skin: Skin color, texture, tugor normal, no rashes or lesions. Neurologic: Alert oriented with slight confusion, cranial nerves II through XII intact, no motor deficit, positive Diego balancing gait with significant Parkinson tremor. Results CBC & Chem 7: 06/08/20 11:41 06/08/20 11:41 Labs: Abnormal Lab Results - Last 24 Hours (Table) 06/08/20 06/08/20 Range/Units 11:41 11:41 Chloride 96 L (98-107) mmol/L Carbon Dioxide 31 H (22-30) mmol/L BUN 34 H (9-20) mg/dL Glucose 298 H (74-99) mg/dL Urine Glucose (UA) 3+ H (Negative) Thrombosis Risk Factor Assmnt - DVT/VTE Prophylaxis DVT/VTE Prophylaxis: Pharmacologic Prophylaxis ordered, Mechanical Prophylaxis ordered Assessment and Plan Assessment: 1 altered mental status: Not clear etiology possibility of infection is very high this point UA was negative chest x-ray doesn't show any sign of infection white blood cell was 9.0 no anemia and no sign of heart attack no major change in kidney function. Keep watching for any change or positive cultures at this point. 2 severe urinary retention: With possible prostatitis versus BPH symptoms, both fully catheter was inserted patient be started on Flomax titrate dose higher I see if patient can have his catheter out also if the urine shows any white blood cell patient might have a prostatitis can be treated accordingly. 3 anasarca and worsening heart failure: Despite BNP is not that high can run an echocardiogram continue IV diuretics and next 24 hours before switching back to oral medication or combine Zaroxolyn 18 with the Bumex. 4 severe hyperglycemia with type 2 diabetes: Patient has been on metformin along with the glyburide continue Accu-Chek with sliding scales coverage. 5 hypertension: Remain on metoprolol 25 mg twice a day, spironolactone and Bumex. 6 hyperlipidemia: Continue patient on atorvastatin 40 mg daily. 7 worsening Parkinson disease: Patient has been on carbidopa levodopa 25/100 mg 4 times a day along with amantadine 100 mg twice a day. 8 worsening dementia: Has been treated as an Alzheimer disease this still can be Parkinson dementia patient has been on Donepazil with no much change at this point can benefit from adding Namenda. 9 severe abnormal balance and gait: Was start patient on PTOT titrate activity gradually. 10 stage II chronic kidney disease: Was slightly but worsening symptoms continue to watch BUN/creatinine next 24 hours. 11 DVT prophylaxis: Patient be on heparin 5000 units subcutaneous twice a day. 12 GI prophylaxis: Patient will be on pantoprazole 40 mg daily. CODE STATUS: Full code. Admit patient to the inpatient service for 1-2 nights stay.
[2020-06-09 06:00] LABS: Glucose,Whole Blood 92 mg/dL (75-99)
[2020-06-09] MEDS: PANTOPRAZOLE 40 MG TABLET PO SCH (06:46)
[2020-06-09] MEDS: metFORMIN 500 MG TAB PO SCH ×2 (06:46→17:07)
[2020-06-09] MEDS: IPRATROPIUM-ALBUTEROL 3 ML NEB INHALATION SCH ×4 (07:29→19:06)
[2020-06-09 08:18] LABS: HCT 45.8 % (39.0-53.0); HGB 15.5 gm/dL (13.0-17.5); MCH 29.8 pg (25.0-35.0); MCHC 33.8 g/dL (31.0-37.0); MCV 88.1 fL (80.0-100.0); Mean Platelet Volume 7.5; Platelet Count 241 k/uL (150-450); RDW 13.1 % (11.5-15.5); WBC 8.8 k/uL (3.8-10.6)
[2020-06-09 08:32] LABS: Albumin 4.2 g/dL (3.5-5.0); Potassium 3.5 mmol/L (3.5-5.1); Total Bilirubin 1.4 mg/dL (0.2-1.3); Total Protein 6.8 g/dL (6.3-8.2)
[2020-06-09] MEDS: ASPIRIN 81 MG PO SCH (08:41)
[2020-06-09] MEDS: FUROSEMIDE 10 MG/ML 4 ML VIAL IV SCH (08:41)
[2020-06-09] MEDS: HEPARIN SODIUM,PORCINE 5,000 UNIT/ML 1 ML VIAL SQ SCH ×2 (08:41→21:58)
[2020-06-09] MEDS: CARBIDOPA-LEVODOPA 25-100 MG 1 EACH TAB PO SCH ×4 (08:42→21:58)
[2020-06-09] MEDS: GLIMEPIRIDE 4 MG TAB PO SCH ×2 (08:42→21:57)
[2020-06-09] MEDS: ISOSORBIDE MONONITRATE ER 60 MG TAB.ER.24H PO SCH (08:43)
[2020-06-09] MEDS: ESCITALOPRAM 20 MG TAB PO SCH (08:43)
[2020-06-09] MEDS: TAMSULOSIN 0.4 MG CAP.ER.24H PO SCH (08:43)
[2020-06-09] MEDS ORDERED: NON FORMULARY DRUG (Bumetanide [Bumex] 2 MG Tablet) PO SCH (09:00)
[2020-06-09] MEDS: METOPROLOL TARTRATE 25 MG TAB PO SCH ×2 (09:55→21:57)
--- NOTE | 2020-06-09 10:11 | P.PN ---
Subjective Progress Note Date: 06/09/20 History of present illness: 79-year-old male one of my office patient with past medical history of atherosclerotic heart disease, type 2 diabetes, Parkinson disease, hypertension, severe BPH who has been having significant problem with mobility lately with abnormal balance and gait developed to have worsening mental status in the last few days with low-grade temperature with frequency urgency with more hesitancy not been able to pass much urine at the time. Patient also has been having problem with edema and worsening symptom with congestive heart failure has not been taking his diuretics on regular basis. Patient has been having much worsening memory is Parkinson disease multiple falls lately, was seen and evaluated demurs department had significant urinary retention with Roberts catheter insertion had 850 mL collected right away his blood sugars mildly elevated urine was negative for infection blood sugar was mildly high at 298, his troponin was negative, Covid 19 was negative. 06/09/2020: Patient is found resting in chair comfortably without any complaints acute distress. 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 Patient currently has indwelling catheter in place that is draining clear yellow urine. Lantus 4 catheter to stay and upon discharge. Patient also is complaining of pain to the sacrum due to pressure ulcers. Patient was able to sleep in bed last night without any difficulties. Katie BC 8.8, hemoglobin 15.5, platelets 241, potassium 3.5, V1 25, creatinine 1.16. Review of Systems: CONSTITUTIONAL: Well-developed no acute respiratory distress. EYES: No icterus sclerae, no conjunctivitis. EARS, NOSE, MOUTH, THROAT, and FACE: No sore throat, lymphadenopathy, carotid bruits or deformity. RESPIRATORY: No SOB cough or wheezes. CARDIOVASCULAR: No chest pain positive PND, orthopnea and edema GASTROINTESTINAL: No Abd pain, Nausea or vomiting, no Diarrhea or constipation, No GI Bleed, no distention or masses. GENITOURINARY: Negative for Hematuria or UTI, no kidney stones. INTEGUMENT/BREAST: Reports wound to coccyx, Negative for any muscular injury with mild osteoarthritis.. HEMATOLOGIC/LYMPHATIC: Negative for bleed or purpura. MUSCULOSKELTAL: Negative for Myalgia or arthralgia. NEURLOGICAL: Mental status change, abnormal balance and gait, worsening Parkinson disease BEHAVIORAL/PSYCH: Mild confusion and worsening memory. ENDOCRINE: Negative. Physical exam: General Appearance: Alert, cooperative, no distress, appears stated age. Neck HEENT: Supple, no lymphadenopathy, no thyroid enlargement, no carotid bruits. Lungs: Decreased expansion bilaterally with fine rhonchi positive mild expiratory wheezes with crackles in the bases. Chest Wall: Decrease expansion with deep inspiration no tenderness and no deformity was found on exam, no costochondral pain or discomfort. Heart: Regular rate and rhythm, S1, S2 normal, positive S3 with systolic murmur. Back: Symmetric, no curvature, ROM normal, no CVA tenderness. Abdomen: Soft possible sound no organomegaly slight ascites with mild anasarca. Extremities: Extremities normal, atraumatic, no cyanosis 2+ edema improved compared to yesterday Pulses: 2+ and symmetric. Skin: Stage II pressure ulcer to right and left gluteus, with granulation seen throughout wound bed wound edges are attached to the wound base no tunneling or undermining noted Skin color, texture, tugor normal, no rashes or lesions. Neurologic: Alert oriented with slight confusion, cranial nerves II through XII intact, no motor deficit, positive Diego balancing gait with significant Parkinson tremor. Assessment/plan: 1 altered mental status: Not clear etiology possibility of infection is very high this point UA was negative chest x-ray doesn't show any sign of infection white blood cell was 9.0 no anemia and no sign of heart attack no major change in kidney function. Keep watching for any change or positive cultures at this point. 2 severe urinary retention: With possible prostatitis versus BPH symptoms, both fully catheter was inserted patient be started on Flomax titrate dose higher I see if patient can have his catheter out also if the urine shows any white blood cell patient might have a prostatitis can be treated accordingly. Consult urology 3 anasarca and worsening heart failure: Despite BNP is not that high can run an echocardiogram awaiting report, continue IV diuretics consult cardiology 4 severe hyperglycemia with type 2 diabetes: Patient has been on metformin along with the glyburide continue Accu-Chek with sliding scales coverage. 5 hypertension: Remain on metoprolol 25 mg twice a day, spironolactone and Bumex. 6 hyperlipidemia: Continue patient on atorvastatin 40 mg daily. 7 worsening Parkinson disease: Patient has been on carbidopa levodopa 25/100 mg 4 times a day along with amantadine 100 mg twice a day. 8 worsening dementia: Has been treated as an Alzheimer disease this still can be Parkinson dementia patient has been on Donepazil with no much change at this point can benefit from adding Namenda. 9 severe abnormal balance and gait: Was start patient on PTOT titrate activity gradually. 10 stage II chronic kidney disease: Was slightly but worsening symptoms continue to watch BUN/creatinine next 24 hours. 11. Stage II pressure ulcer. Honey alginate to the site. 12 DVT prophylaxis: Patient be on heparin 5000 units subcutaneous twice a day. 13 GI prophylaxis: Patient will be on pantoprazole 40 mg daily. CODE STATUS: Full code. Admit patient to the inpatient service for 1-2 nights stay. Impression and plan of care have been directed as dictated by the signing physician. Roya Whitehead nurse practitioner acting as scribe for signing physician. Objective - Vital Signs Vital signs: Vital Signs Temp 97.4 F L 06/09/20 08:40 Pulse 95 06/09/20 09:00 Resp 18 06/09/20 09:00 BP 127/73 06/09/20 08:40 Pulse Ox 97 06/09/20 08:40 Intake & Output 06/08/20 06/09/20 06/09/20 18:59 06:59 18:59 Intake Total 300 Output Total 825 1700 700 Balance -825 -1700 -400 Weight 83.915 kg 83.915 kg Intake: Oral 300 Output: Urine 825 1700 700 Other: Voiding Method Indwelling Catheter Indwelling Catheter - Labs CBC & Chem 7: 06/09/20 08:02 06/09/20 08:02 Labs: Abnormal Lab Results - Last 24 Hours (Table) 06/08/20 06/08/20 06/08/20 Range/Units 11:41 11:41 17:41 Chloride 96 L (98-107) mmol/L Carbon Dioxide 31 H (22-30) mmol/L BUN 34 H (9-20) mg/dL Glucose 298 H (74-99) mg/dL POC Glucose (mg/dL) 122 H (75-99) mg/dL Total Bilirubin (0.2-1.3) mg/dL Urine Glucose (UA) 3+ H (Negative) 06/08/20 06/09/20 Range/Units 22:22 08:02 Chloride 97 L (98-107) mmol/L Carbon Dioxide 33 H (22-30) mmol/L BUN 25 H (9-20) mg/dL Glucose 169 H (74-99) mg/dL POC Glucose (mg/dL) 131 H (75-99) mg/dL Total Bilirubin 1.4 H (0.2-1.3) mg/dL Urine Glucose (UA) (Negative)
[2020-06-09 10:14] VITALS: BMI 25.7
[2020-06-09] MEDS ORDERED: BUMETANIDE 1 MG TAB PO SCH (10:45)
[2020-06-09] MEDS: SPIRONOLACTONE 25 MG TAB PO SCH (10:51)
[2020-06-09 11:57] LABS: Glucose,Whole Blood 324 mg/dL (75-99)
--- NOTE | 2020-06-09 14:21 | P.CRDCN ---
History of Present Illness History of present illness: HISTORY OF PRESENTING ILLNESS This is a pleasant 79-year-old male past medical history significant for Parkinson's disease, coronary artery disease with 100% proximal occlusion of the RCA with collaterals, diabetes mellitus, dyslipidemia, hypertension and chronic diastolic dysfunction. He follows in the office with Dr. Kaye. We have been asked to see in consultation for heart failure. Stented to the hospital with symptoms of urinary retention and shortness of breath that has been going on and off intermittently for the previous couple months. He said he is only able to urinary a small amount. Roberts catheter was placed on admission and a total of 825 mL of urine output. Since admission he has had just over 3009 of output. He also feels overall generalized weakness and fatigue. He states when he walks up and down the stairs at home he feels short of breath and feels heavy pressure sensation in the midsternal region. His symptoms of shortness of breath and chest discomfort improved when he sits down and rests for a couple minutes. He states on arrival he had significant lower extremity edema that has since resolved. He has been started on IV diuresis. DIAGNOSTICS EKG reveals sinus mechanism with no acute ST or T wave abnormalities noted. Telemetry tracings indicate sinus mechanism. Chest xray negative for an acute cardiopulmonary process with underlying of the submitted changes. Laboratory reviewed, CBC unremarkable, sodium 140, potassium 3.5, creatinine 1.16, cardiac enzymes negative 1, proBNP 180. Current cardiac medications include aspirin 81 mg daily, atorvastatin 40 mg daily, Bumex 2 mg daily, Imdur 60 mg daily, Lopressor 25 mg twice a day and Aldactone 25 mg daily. Most recent cardiac catheterization 2016 revealed 100% proximal RCA with collateral flow. Most recent echocardiogram March 2020 revealed preserved LV systolic function with ejection fraction 55-60%, mild tricuspid regurgitation, mild mitral regurgitation and mild aortic regurgitation. Most recent stress test performed in February 2020 revealed inferior wall fixed defect with mild leslee-infarct ischemia. REVIEW OF SYSTEMS At the time of my exam: CONSTITUTIONAL: Denies fever or chills. CARDIOVASCULAR: Denies chest pain, shortness of breath, orthopnea, PND or pa lpitations. RESPIRATORY: Denies cough. GASTROINTESTINAL: Denies abdominal pain, diarrhea, constipation, nausea or vomiting. MUSCULOSKELETAL: Denies myalgias. NEUROLOGIC: Denies numbness, tingling, headacbe or weakness. ENDOCRINE: Denies fatigue, weight change, polydipsia or polyurina. GENITOURINARY: Denies burning, hematuria or urgency with micturation. HEMATOLOGIC: Denies history of anemia or bleeding. PHYSICAL EXAMINATION Blood pressure 127/73 heart rate 95 afebrile and maintaining oxygen saturation on room air. CONSTITUTIONAL: No apparent distress. Chronic tremor of the right arm. HEENT: Head is normocephalic. Pupils are equal, round. Sclerae anicteric. Mucous membranes of the mouth are moist. No JVD. No carotid bruit. CHEST EXAMINATION: Lungs are clear to auscultation. No chest wall tenderness is noted on palpation or with deep breathing. HEART EXAMINATION: Regular rate and rhythm. S1, S2 heard. No murmurs, gallops or rub. ABDOMEN: Soft, nontender. Positive bowel sounds. EXTREMITIES: 2+ peripheral pulses, no lower extremity edema and no calf tenderness. NEUROLOGIC EXAMINATION: Patient is awake, alert and oriented x3. ASSESSMENT Exertional shortness of breath and chest pain Unstable angina Coronary artery disease with chronic total occlusion of the RCA Urinary retention Acute on chronic diastolic heart failure Hypertension Dyslipidemia Mitral regurgitation PLAN The patient seems to have diuresed well since admission. He has no further lower extremity edema. Resume Bumex and Aldactone as previously ordered. Recent echocardiogram reviewed, we will not repeat an echocardiogram on this admission. Increase imdur to 60 mg daily. Clinically he has improved since admission in terms of fluid overload. Can be discharged home to follow up with Dr. Kaye in the office. Thank you kindly for this consultation. Nurse Practitioner note has been reviewed, I agree with a documented findings and plan of care. Patient was seen and examined. Past Medical History Past Medical History: Heart Failure, Diabetes Mellitus, Eye Disorder, GERD/Reflux, Hyperlipidemia, Hypertension, Musculoskeletal Disorder Additional Past Medical History / Comment(s): SHORTNESS OF BREATH, bilat cataracts History of Any Multi-Drug Resistant Organisms: None Reported Past Surgical History: Orthopedic Surgery Additional Past Surgical History / Comment(s): RT HAND CYST REMOVED. LT EYE SX R/T MUSCLE PROB. COLONOSCOPY. Past Anesthesia/Blood Transfusion Reactions: No Reported Reaction Past Psychological History: Depression Additional Psychological History / Comment(s): "MILD" Smoking Status: Former smoker Past Alcohol Use History: None Reported Additional Past Alcohol Use History / Comment(s): SMOKED 20 YEARS, 1 PPD, QUIT 1983. Past Drug Use History: None Reported - Past Family History Mother Family Medical History: Coronary Artery Disease (CAD) Additional Family Medical History / Comment(s): HX CABG, VALVE REPLACEMENT. Medications and Allergies Home Medications Medication Instructions Recorded Confirmed Type Aspirin 81 mg PO DAILY 10/20/13 06/08/20 History Metoprolol Tartrate [Lopressor] 25 mg PO BID 05/21/16 06/08/20 History Atorvastatin [Lipitor] 40 mg PO HS 12/14/17 06/08/20 History Glimepiride [Amaryl] 4 mg PO BID 12/14/17 06/08/20 History Isosorbide Mononitrate ER [Imdur] 60 mg PO DAILY 12/14/17 06/08/20 History metFORMIN HCL [Glucophage] 500 mg PO BID 12/14/17 06/08/20 History ALPRAZolam [Xanax] 0.25 mg PO BID PRN 06/08/20 06/08/20 History Bumetanide [BUMEX] 2 mg PO DAILY 06/08/20 06/08/20 History Carbidopa-Levodopa 25-100 mg 1 tab PO QID 06/08/20 06/08/20 History [Sinemet 25-100] Donepezil [Aricept] 10 mg PO HS 06/08/20 06/08/20 History Escitalopram [Lexapro] 20 mg PO DAILY 06/08/20 06/08/20 History Nitroglycerin Sl Tabs [Nitrostat] 0.4 mg SL Q5M PRN 06/08/20 06/08/20 History Spironolactone [Aldactone] 25 mg PO DAILY 06/08/20 06/08/20 History amantadine HCL [Amantadine] 100 mg PO BID 06/08/20 06/08/20 History Allergies Allergy/AdvReac Type Severity Reaction Status Date / Time Sulfa (Sulfonamide Allergy Rash/Hives Verified 06/08/20 11:20 Antibiotics) Physical Exam Vitals: Vital Signs Temp Pulse Pulse Resp BP BP Pulse Ox 06/09/20 09:00 95 18 06/09/20 08:40 97.4 F L 95 18 127/73 97 06/09/20 07:29 64 06/09/20 04:29 97.7 F 74 16 129/67 96 06/08/20 21:06 67 06/08/20 21:00 98.5 F 80 16 125/68 96 06/08/20 20:53 67 06/08/20 13:46 20 06/08/20 13:31 67 16 108/74 98 06/08/20 11:17 98.6 F 65 22 146/72 97 Intake and Output 06/08/20 06/09/20 06/09/20 22:59 06:59 14:59 Intake Total 300 Output Total 600 1100 700 Balance -600 -1100 -400 Intake: Oral 300 Output: Urine 600 1100 700 Other: Voiding Method Indwelling Catheter Indwelling Catheter Weight 83.915 kg 83.915 kg Results 06/09/20 08:02 06/09/20 08:02 Cardiac Enzymes 06/08/20 06/08/20 06/09/20 Range/Units 11:41 11:41 08:02 AST 25 31 (17-59) U/L Troponin I <0.012 (0.000-0.034) ng/mL Coagulation 06/08/20 Range/Units 11:41 PT 10.4 (9.0-12.0) sec APTT 22.2 (22.0-30.0) sec CBC 06/08/20 06/09/20 Range/Units 11:41 08:02 WBC 9.0 8.8 (3.8-10.6) k/uL RBC 4.95 5.20 (4.30-5.90) m/uL Hgb 14.9 15.5 (13.0-17.5) gm/dL Hct 43.4 45.8 (39.0-53.0) % Plt Count 255 241 (150-450) k/uL Comprehensive Metabolic Panel 06/08/20 06/09/20 Range/Units 11:41 08:02 Sodium 138 140 (137-145) mmol/L Potassium 3.8 3.5 (3.5-5.1) mmol/L Chloride 96 L 97 L (98-107) mmol/L Carbon Dioxide 31 H 33 H (22-30) mmol/L BUN 34 H 25 H (9-20) mg/dL Creatinine 1.09 1.16 (0.66-1.25) mg/dL Glucose 298 H 169 H (74-99) mg/dL Calcium 9.3 9.0 (8.4-10.2) mg/dL AST 25 31 (17-59) U/L ALT 10 16 (4-49) U/L Alkaline Phosphatase 90 94 (38-126) U/L Total Protein 7.0 6.8 (6.3-8.2) g/dL Albumin 4.4 4.2 (3.5-5.0) g/dL Current Medications Generic Name Dose Route Start Last Admin Trade Name Freq PRN Reason Stop Dose Admin Albuterol/Ipratropium 3 ml 06/08/20 16:00 06/09/20 07:29 Ipratropium-Albuterol 3 Ml Neb INHALATION 3 ml RT-QID RAMIN Administration Albuterol/Ipratropium 3 ml 06/08/20 14:35 Ipratropium-Albuterol 3 Ml Neb INHALATION RT-Q4H PRN Shortness Of Breath Or Wheezing Alprazolam 0.25 mg 06/08/20 16:04 06/08/20 22:35 Alprazolam 0.25 Mg Tab PO 0.25 mg BID PRN Administration Anxiety Amantadine HCl 100 mg 06/08/20 21:00 06/09/20 08:42 Amantadine Hcl 100 Mg Cap PO 100 mg BID RAMIN Administration Aspirin 81 mg 06/09/20 09:00 06/09/20 08:41 Aspirin 81 Mg PO 81 mg DAILY RAMIN Administration Atorvastatin Calcium 40 mg 06/08/20 21:00 06/08/20 22:35 Atorvastatin 40 Mg Tab PO 40 mg HS RAMIN Administration Carbidopa/Levodopa 1 each 06/08/20 18:00 06/09/20 08:42 Carbidopa-Levodopa 25-100 Mg 1 Each Tab PO 1 each QID RAMIN Administration Donepezil HCl 10 mg 06/08/20 21:00 06/08/20 23:31 Donepezil 10 Mg Tab PO 10 mg HS RAMIN Administration Escitalopram Oxalate 20 mg 06/09/20 09:00 06/09/20 08:43 Escitalopram 20 Mg Tab PO 20 mg DAILY RAMIN Administration Furosemide 40 mg 06/08/20 21:00 06/09/20 08:41 Furosemide 10 Mg/Ml 4 Ml Vial IV 40 mg Q12HR RAMIN Administration Glimepiride 4 mg 06/08/20 21:00 06/09/20 08:42 Glimepiride 4 Mg Tab PO 4 mg BID RAMIN Administration Heparin Sodium (Porcine) 5,000 unit 06/08/20 21:00 06/09/20 08:41 Heparin Sodium,Porcine 5,000 Unit/Ml 1 Ml Vial SQ 5,000 unit Q12HR RAMIN Administration Isosorbide Mononitrate 60 mg 06/09/20 09:00 06/09/20 08:43 Isosorbide Mononitrate Er 60 Mg Tab.Er.24h PO 60 mg DAILY RAMIN Administration Metformin HCl 500 mg 06/08/20 17:30 06/09/20 06:46 Metformin 500 Mg Tab PO 500 mg BID-W/MEALS RAMIN Administration Metoprolol Tartrate 25 mg 06/09/20 09:00 06/09/20 09:55 Metoprolol Tartrate 25 Mg Tab PO 25 mg BID RAMIN Administration Nitroglycerin 0.4 mg 06/08/20 16:04 Nitroglycerin Sl Tabs 0.4 Mg Tab SUBLINGUAL Q5M PRN Chest Pain Pantoprazole Sodium 40 mg 06/09/20 07:30 06/09/20 06:46 Pantoprazole 40 Mg Tablet PO 40 mg AC-BRKFST RAMIN Administration Tamsulosin HCl 0.4 mg 06/09/20 08:30 06/09/20 08:43 Tamsulosin 0.4 Mg Cap.Er.24h PO 0.4 mg PC-BRKFST RAMIN Administration Intake and Output 06/08/20 06/09/20 06/09/20 22:59 06:59 14:59 Intake Total 300 Output Total 600 1100 700 Balance -600 -1100 -400 Intake: Oral 300 Output: Urine 600 1100 700 Other: Voiding Method Indwelling Catheter Indwelling Catheter Weight 83.915 kg 83.915 kg Patient Weight 06/10/20 06:59 Weight 83.915 kg 06/09/20 08:02 06/09/20 08:02
--- NOTE | 2020-06-09 16:27 | ECHOF ---
Referral Reason:lvfunction MEASUREMENTS -------- HEIGHT: 180.3 cm WEIGHT: 83.9 kg BP: 129/67 RVIDd: 2.5 cm (< 3.3) IVSd: 1.2 cm (0.6 - 1.1) LVIDd: 4.5 cm (3.9 - 5.3) LVPWd: 1.2 cm (0.6 - 1.1) IVSs: 1.9 cm LVIDs: 2.8 cm LVPWs: 1.8 cm LA Diam: 3.5 cm (2.7 - 3.8) Ao Diam: 3.8 cm (2.0 - 3.7) AV Cusp: 2.1 cm (1.5 - 2.6) MV EXCURSION: 14.924 mm (> 18.000) MV EF SLOPE: 68 mm/s (70 - 150) EPSS: 1.0 cm MV E Juan Carlos: 0.85 m/s MV DecT: 199 ms MV A Juan Carlos: 0.81 m/s MV E/A Ratio: 1.05 FINDINGS -------- Sinus rhythm. This was a technically adequate study. The left ventricular size is normal. There is borderline concentric left ventricular hypertrophy. Overall left ventricular systolic function is normal with, an EF between 60 - 65 %. The right ventricle is normal in size. The left atrium is normal in size. The right atrium is normal in size. Interatrial and interventricular septum intact. The aortic valve is trileaflet and appears structurally normal. The mitral valve is normal. The tricuspid valve appears structurally normal. The pulmonic valve was not well visualized. The aortic root is dilated measuring 3.8cm. Normal inferior vena cava with normal inspiratory collapse consistent with estimated right atrial pre ssure of 5 mmHg. There is no pericardial effusion. CONCLUSIONS -------- 1. The left ventricular size is normal. 2. There is borderline concentric left ventricular hypertrophy. 3. Overall left ventricular systolic function is normal with, an EF between 60 - 65 %. 4. The aortic root is dilated measuring 3.8cm. 5. There is no pericardial effusion. 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
[2020-06-09 16:52] LABS: Glucose,Whole Blood 423 mg/dL (75-99)
[2020-06-09] MEDS: INSULIN ASPART (NovoLOG) 100 UNIT/ML VIAL SQ SCH ×3 (17:40→22:11)
[2020-06-09 21:39] LABS: Glucose,Whole Blood 123 mg/dL (75-99)
[2020-06-09] MEDS: INSULIN DETEMIR (LEVEMIR) 100 UNIT/ML SYR SQ SCH (21:57)
[2020-06-09] MEDS: ATORVASTATIN 40 MG TAB PO SCH (21:58)
[2020-06-09] MEDS: DONEPEZIL 10 MG TAB PO SCH (21:58)
[2020-06-10 04:49] LABS: Glucose,Whole Blood 116 mg/dL (75-99)
[2020-06-10] MEDS: metFORMIN 500 MG TAB PO SCH ×2 (07:00→17:12)
[2020-06-10] MEDS: PANTOPRAZOLE 40 MG TABLET PO SCH (07:00)
[2020-06-10] MEDS: IPRATROPIUM-ALBUTEROL 3 ML NEB INHALATION SCH ×4 (07:25→20:21)
[2020-06-10] MEDS: INSULIN ASPART (NovoLOG) 100 UNIT/ML VIAL SQ SCH ×7 (08:08→21:51)
[2020-06-10] MEDS: SPIRONOLACTONE 25 MG TAB PO SCH (08:09)
[2020-06-10] MEDS: HEPARIN SODIUM,PORCINE 5,000 UNIT/ML 1 ML VIAL SQ SCH ×2 (08:09→21:50)
[2020-06-10] MEDS: METOPROLOL TARTRATE 25 MG TAB PO SCH ×2 (08:09→21:52)
[2020-06-10] MEDS: ASPIRIN 81 MG PO SCH (08:09)
[2020-06-10] MEDS: TAMSULOSIN 0.4 MG CAP.ER.24H PO SCH (08:09)
[2020-06-10] MEDS: CARBIDOPA-LEVODOPA 25-100 MG 1 EACH TAB PO SCH ×4 (08:10→21:50)
[2020-06-10] MEDS: ESCITALOPRAM 20 MG TAB PO SCH (08:10)
[2020-06-10] MEDS: GLIMEPIRIDE 4 MG TAB PO SCH ×2 (08:10→21:52)
[2020-06-10] MEDS: BUMETANIDE 1 MG TAB PO SCH (08:11)
[2020-06-10] MEDS: ISOSORBIDE MONONITRATE ER 60 MG TAB.ER.24H PO SCH (08:11)
--- NOTE | 2020-06-10 10:09 | P.PN ---
Subjective Progress Note Date: 06/10/20 History of present illness: 79-year-old male one of my office patient with past medical history of atherosclerotic heart disease, type 2 diabetes, Parkinson disease, hypertension, severe BPH who has been having significant problem with mobility lately with abnormal balance and gait developed to have worsening mental status in the last few days with low-grade temperature with frequency urgency with more hesitancy not been able to pass much urine at the time. Patient also has been having problem with edema and worsening symptom with congestive heart failure has not been taking his diuretics on regular basis. Patient has been having much worsening memory is Parkinson disease multiple falls lately, was seen and evaluated demurs department had significant urinary retention with Roberts catheter insertion had 850 mL collected right away his blood sugars mildly elevated urine was negative for infection blood sugar was mildly high at 298, his troponin was negative, Covid 19 was negative. 06/09/2020: Patient is found resting in chair comfortably without any complaints acute distress. 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 Patient currently has indwelling catheter in place that is draining clear yellow urine. Indwelling catheter to stay and upon discharge. Patient also is complaining of pain to the sacrum due to pressure ulcers. Patient was able to sleep in bed last night without any difficulties. WBC 8.8, hemoglobin 15.5, platelets 241, potassium 3.5, V1 25, creatinine 1.16. 06/10: She is found sitting up in a chair without any complaints or concerns. Patient states that he is feeling much better even compared to yesterday. He currently has an indwelling catheter in place draining clear yellow urine. Patient has been afebrile pulse rate 71, respirations 16 nonlabored, blood pressure 109/75 pulse ox 100% on room air. Echocardiogram conclusions: Left ventricle size is normal, there is borderline concentric left ventricle hypertrophy, overall left ventricle systolic dimension is normal with an EF between 6065%, aortic root is dilated measuring 3.8 cm, there is no pericardial effusion. Review of Systems: CONSTITUTIONAL: Well-developed no acute respiratory distress. EYES: No icterus sclerae, no conjunctivitis. EARS, NOSE, MOUTH, THROAT, and FACE: No sore throat, lymphadenopathy, carotid bruits or deformity. RESPIRATORY: No SOB cough or wheezes. CARDIOVASCULAR: No chest pain positive PND, orthopnea and edema GASTROINTESTINAL: No Abd pain, Nausea or vomiting, no Diarrhea or constipation, No GI Bleed, no distention or masses. GENITOURINARY: Negative for Hematuria or UTI, no kidney stones. INTEGUMENT/BREAST: Reports wound to coccyx, Negative for any muscular injury with mild osteoarthritis.. HEMATOLOGIC/LYMPHATIC: Negative for bleed or purpura. MUSCULOSKELTAL: Negative for Myalgia or arthralgia. NEURLOGICAL: Mental status change, abnormal balance and gait, worsening Parki nson disease BEHAVIORAL/PSYCH: Mild confusion and worsening memory. ENDOCRINE: Negative. Physical exam: General Appearance: Alert, cooperative, no distress, appears stated age. Neck HEENT: Supple, no lymphadenopathy, no thyroid enlargement, no carotid bruits. Lungs: Decreased expansion bilaterally with fine rhonchi positive mild expiratory wheezes with crackles in the bases. Chest Wall: Decrease expansion with deep inspiration no tenderness and no deformity was found on exam, no costochondral pain or discomfort. Heart: Regular rate and rhythm, S1, S2 normal, positive S3 with systolic murmur. Back: Symmetric, no curvature, ROM normal, no CVA tenderness. Abdomen: Soft possible sound no organomegaly slight ascites with mild anasarca. Extremities: Extremities normal, atraumatic, no cyanosis 2+ edema improved compared to yesterday Pulses: 2+ and symmetric. Skin: Stage II pressure ulcer to right and left gluteus, with granulation seen throughout wound bed wound edges are attached to the wound base no tunneling or undermining noted Skin color, texture, tugor normal, no rashes or lesions. Neurologic: Alert oriented with slight confusion, cranial nerves II through XII intact, no motor deficit, positive Diego balancing gait with significant Parkinson tremor. Assessment/plan: 1 altered mental status: Not clear etiology possibility of infection is very high this point UA was negative chest x-ray doesn't show any sign of infection white blood cell was 9.0 no anemia and no sign of heart attack no major change in kidney function. Keep watching for any change or positive cultures at this point. 2 severe urinary retention: With possible prostatitis versus BPH symptoms, both fully catheter was inserted patient be started on Flomax titrate dose higher I see if patient can have his catheter out also if the urine shows any white blood cell patient might have a prostatitis can be treated accordingly. Consult urology 3 anasarca and worsening heart failure: Despite BNP is not that high can run an echocardiogram reports results noted above, continue with IV diuretics, cardiology consult appreciated. 4 severe hyperglycemia with type 2 diabetes: Patient has been on metformin along with the glyburide continue Accu-Chek with sliding scales coverage. 5 hypertension: Remain on metoprolol 25 mg twice a day, spironolactone and Bum ex. 6 hyperlipidemia: Continue patient on atorvastatin 40 mg daily. 7 worsening Parkinson disease: Patient has been on carbidopa levodopa 25/100 mg 4 times a day along with amantadine 100 mg twice a day. 8 worsening dementia: Has been treated as an Alzheimer disease this still can be Parkinson dementia patient has been on Donepazil with no much change at this point can benefit from adding Namenda. 9 severe abnormal balance and gait: Was start patient on PT/OT titrate activity gradually. 10 stage II chronic kidney disease: Was slightly but worsening symptoms continue to watch BUN/creatinine next 24 hours. 11. Stage II pressure ulcer. Honey alginate to the site. 12 DVT prophylaxis: Patient be on heparin 5000 units subcutaneous twice a day. 13 GI prophylaxis: Patient will be on pantoprazole 40 mg daily. CODE STATUS: Full code. Admit patient to the inpatient service for 1-2 nights stay. Discharge plan: Possibly home tomorrow. Impression and plan of care have been directed as dictated by the signing physician. Roya Whitehead nurse practitioner acting as scribe for signing physician. Objective - Vital Signs Vital signs: Vital Signs Temp 98 F 06/10/20 08:32 Pulse 71 06/10/20 08:32 Resp 16 06/10/20 08:32 BP 109/65 06/10/20 08:32 Pulse Ox 100 06/10/20 08:32 Intake & Output 06/09/20 06/10/20 06/10/20 18:59 06:59 18:59 Intake Total 1000 Output Total 1075 525 550 Balance -75 -525 -550 Weight 83.915 kg Intake: Oral 1000 Output: Urine 1075 525 550 Other: Voiding Method Indwelling Catheter Indwelling Catheter # Voids 300 300 - Labs CBC & Chem 7: 06/09/20 08:02 06/09/20 08:02 Labs: Abnormal Lab Results - Last 24 Hours (Table) 06/09/20 06/09/20 06/09/20 Range/Units 11:55 16:50 21:36 POC Glucose (mg/dL) 324 H 423 H 123 H (75-99) mg/dL 06/10/20 Range/Units 04:37 POC Glucose (mg/dL) 116 H (75-99) mg/dL
[2020-06-10 11:08] LABS: Basophils % (A) 0 %; Eosinophils # (A) 0.2 k/uL (0-0.7); Eosinophils % (A) 2 %; HCT 43.6 % (39.0-53.0); Lymphocytes # (A) 1.6 k/uL (1.0-4.8); Lymphocytes % (A) 15 %; MCH 30.2 pg (25.0-35.0); MCHC 34.3 g/dL (31.0-37.0); MCV 88.1 fL (80.0-100.0); Mean Platelet Volume 8.7; Monocytes # (A) 0.8 k/uL (0-1.0); Monocytes % (A) 8 %; Neutrophils # (A) 7.7 k/uL (1.3-7.7); Neutrophils % (A) 74 %; Platelet Count 248 k/uL (150-450); RBC 4.95 m/uL (4.30-5.90); RDW 13.1 % (11.5-15.5); WBC 10.4 k/uL (3.8-10.6)
[2020-06-10 11:19] LABS: Calcium 9.1 mg/dL (8.4-10.2); Potassium 3.7 mmol/L (3.5-5.1); Total Protein 6.6 g/dL (6.3-8.2)
[2020-06-10 11:43] LABS: Glucose,Whole Blood 137 mg/dL (75-99)
--- NOTE | 2020-06-10 12:23 | P.GSCN ---
History of Present Illness Consult date: 06/10/20 Reason for Consult: urinary retention History of present illness: This is an 79-year-old male past medical history significant for Parkinson's disease, he is admitted to the hospital with shortness of breath and urinary retention. He indicated for the past 6 months he's been having trouble voiding. He's been complaining of straining to void and voiding small on urine. He's also been complaining with urgency and urge incontinence. A Roberts catheter was inserted with the return of 825 mL of urine output. Denies any history of gross hematuria, previous episode of urinary retention, history of UTIs. Catheter is in place draining clear yellow urine Review of Systems - Constitutional Denies chills, Denies fever - Cardiovascular Reports leg edema, Reports shortness of breath - Respiratory Reports dyspnea - Gastrointestinal Reports as per HPI, Denies nausea, Denies vomiting - Genitourinary Reports urinary retention, Denies flank pain, Denies hematuria - Neurological Denies headaches, Denies syncope Past Medical History Past Medical History: Heart Failure, Diabetes Mellitus, Eye Disorder, GERD/R eflux, Hyperlipidemia, Hypertension, Musculoskeletal Disorder Additional Past Medical History / Comment(s): SHORTNESS OF BREATH, bilat cataracts History of Any Multi-Drug Resistant Organisms: None Reported Past Surgical History: Orthopedic Surgery Additional Past Surgical History / Comment(s): RT HAND CYST REMOVED. LT EYE SX R/T MUSCLE PROB. COLONOSCOPY. Past Anesthesia/Blood Transfusion Reactions: No Reported Reaction Past Psychological History: Depression Additional Psychological History / Comment(s): "MILD" Smoking Status: Former smoker Past Alcohol Use History: None Reported Additional Past Alcohol Use History / Comment(s): SMOKED 20 YEARS, 1 PPD, QUIT 1983. Past Drug Use History: None Reported - Past Family History Mother Family Medical History: Coronary Artery Disease (CAD) Additional Family Medical History / Comment(s): HX CABG, VALVE REPLACEMENT. Medications and Allergies Home Medications Medication Instructions Recorded Confirmed Type Aspirin 81 mg PO DAILY 10/20/13 06/08/20 History Metoprolol Tartrate [Lopressor] 25 mg PO BID 05/21/16 06/08/20 History Atorvastatin [Lipitor] 40 mg PO HS 12/14/17 06/08/20 History Glimepiride [Amaryl] 4 mg PO BID 12/14/17 06/08/20 History Isosorbide Mononitrate ER [Imdur] 60 mg PO DAILY 12/14/17 06/08/20 History metFORMIN HCL [Glucophage] 500 mg PO BID 12/14/17 06/08/20 History ALPRAZolam [Xanax] 0.25 mg PO BID PRN 06/08/20 06/08/20 History Bumetanide [BUMEX] 2 mg PO DAILY 06/08/20 06/08/20 History Carbidopa-Levodopa 25-100 mg 1 tab PO QID 06/08/20 06/08/20 History [Sinemet 25-100] Donepezil [Aricept] 10 mg PO HS 06/08/20 06/08/20 History Escitalopram [Lexapro] 20 mg PO DAILY 06/08/20 06/08/20 History Nitroglycerin Sl Tabs [Nitrostat] 0.4 mg SL Q5M PRN 06/08/20 06/08/20 History Spironolactone [Aldactone] 25 mg PO DAILY 06/08/20 06/08/20 History amantadine HCL [Amantadine] 100 mg PO BID 06/08/20 06/08/20 History Allergies Allergy/AdvReac Type Severity Reaction Status Date / Time Sulfa (Sulfonamide Allergy Rash/Hives Verified 06/08/20 11:20 Antibiotics) Surgical - Exam Vital Signs Temp Pulse Resp BP Pulse Ox 98.6 F 65 22 146/72 97 06/08/20 11:17 06/08/20 11:17 06/08/20 11:17 06/08/20 11:17 06/08/20 11:17 - General well developed, well nourished, no distress, no pain - Eyes PERRL, normal ocular movement - ENT normal nares, normal mucosa - Respiratory normal expansion, normal respiratory effort - Abdomen Abdomen: soft - Genitourinary Roberts in place draining clear yellow urine - Psychiatric oriented to time, oriented to person, oriented to place Results - Labs 06/10/20 10:08 06/10/20 10:08 Abnormal Lab Results - Last 24 Hours (Table) 06/09/20 06/09/20 06/10/20 Range/Units 16:50 21:36 04:37 Sodium (137-145) mmol/L Chloride (98-107) mmol/L BUN (9-20) mg/dL Creatinine (0.66-1.25) mg/dL Glucose (74-99) mg/dL POC Glucose (mg/dL) 423 H 123 H 116 H (75-99) mg/dL 06/10/20 06/10/20 Range/Units 10:08 11:42 Sodium 135 L (137-145) mmol/L Chloride 94 L (98-107) mmol/L BUN 38 H (9-20) mg/dL Creatinine 1.31 H (0.66-1.25) mg/dL Glucose 169 H (74-99) mg/dL POC Glucose (mg/dL) 137 H (75-99) mg/dL Diabetes panel 06/10/20 Range/Units 10:08 Sodium 135 L (137-145) mmol/L Potassium 3.7 (3.5-5.1) mmol/L Chloride 94 L (98-107) mmol/L Carbon Dioxide 30 (22-30) mmol/L BUN 38 H (9-20) mg/dL Creatinine 1.31 H (0.66-1.25) mg/dL Glucose 169 H (74-99) mg/dL Calcium 9.1 (8.4-10.2) mg/dL AST 27 (17-59) U/L ALT 16 (4-49) U/L Alkaline Phosphatase 89 (38-126) U/L Total Protein 6.6 (6.3-8.2) g/dL Albumin 4.0 (3.5-5.0) g/dL Calcium panel 06/10/20 Range/Units 10:08 Calcium 9.1 (8.4-10.2) mg/dL Albumin 4.0 (3.5-5.0) g/dL Pituitary panel 06/10/20 Range/Units 10:08 Sodium 135 L (137-145) mmol/L Potassium 3.7 (3.5-5.1) mmol/L Chloride 94 L (98-107) mmol/L Carbon Dioxide 30 (22-30) mmol/L BUN 38 H (9-20) mg/dL Creatinine 1.31 H (0.66-1.25) mg/dL Glucose 169 H (74-99) mg/dL Calcium 9.1 (8.4-10.2) mg/dL Adrenal panel 06/10/20 Range/Units 10:08 Sodium 135 L (137-145) mmol/L Potassium 3.7 (3.5-5.1) mmol/L Chloride 94 L (98-107) mmol/L Carbon Dioxide 30 (22-30) mmol/L BUN 38 H (9-20) mg/dL Creatinine 1.31 H (0.66-1.25) mg/dL Glucose 169 H (74-99) mg/dL Calcium 9.1 (8.4-10.2) mg/dL Total Bilirubin 1.0 (0.2-1.3) mg/dL AST 27 (17-59) U/L ALT 16 (4-49) U/L Alkaline Phosphatase 89 (38-126) U/L Total Protein 6.6 (6.3-8.2) g/dL Albumin 4.0 (3.5-5.0) g/dL Assessment and Plan Assessment: 79-year-old male admitted to the hospital shortness of breath, and urinary retention. A Roberts catheter was placed with return of 825 of urine. He's been having difficulty voiding for the past 6 months, his urinary retention is most like secondary to BPH and his Parkinson disease. At this time recommend to keep the catheter in place, continue the Flomax. He can follow-up as an outpatient in 1 week for trial of void
--- NOTE | 2020-06-10 16:55 | P.PN ---
Subjective HISTORY OF PRESENTING ILLNESS This is a pleasant 79-year-old male past medical history significant for Parkinson's disease, coronary artery disease with 100% proximal occlusion of the RCA with collaterals, diabetes mellitus, dyslipidemia, hypertension and chronic diastolic dysfunction. He follows in the office with Dr. Kaye. We have been asked to see in consultation for heart failure. Stented to the hospital with symptoms of urinary retention and shortness of breath that has been going on and off intermittently for the previous couple months. He said he is only able to urinary a small amount. Roberts catheter was placed on admission and a total of 825 mL of urine output. Since admission he has had just over 3009 of output. He also feels overall generalized weakness and fatigue. He states when he walks up and down the stairs at home he feels short of breath and feels heavy pressure sensation in the midsternal region. His symptoms of shortness of breath and chest discomfort improved when he sits down and rests for a couple minutes. He states on arrival he had significant lower extremity edema that has since resolved. He has been started on IV diuresis. 06/10/20 Patient seen and examined. Patient misses lower extremity edema has improved and feels better than when he came in. He does still have a Roberts catheter in. Patient remains on Bumex 2 mg daily and spironolactone with good urine output. Patient admits that he has had chest pain and shortness breath with exertion which upon further questioning has been going on for a few months. Currently since admission patient without any chest pain. REVIEW OF SYSTEMS At the time of my exam: CONSTITUTIONAL: Denies fever or chills. CARDIOVASCULAR: + chest pain, +shortness of breath, no orthopnea, PND or palpitations. RESPIRATORY: Denies cough. GASTROINTESTINAL: Denies abdominal pain, diarrhea, constipation, nausea or vomiting. MUSCULOSKELETAL: Denies myalgias. NEUROLOGIC: Denies numbness, tingling, headacbe or weakness. ENDOCRINE: Denies fatigue, weight change, polydipsia or polyurina. GENITOURINARY: Denies burning, hematuria or urgency with micturation. HEMATOLOGIC: Denies history of anemia or bleeding. PHYSICAL EXAMINATION Blood pressure 127/73 heart rate 95 afebrile and maintaining oxygen saturation on room air. CONSTITUTIONAL: No apparent distress. Chronic tremor of the right arm. HEENT: Head is normocephalic. Pupils are equal, round. Sclerae anicteric. Mucous membranes of the mouth are moist. No JVD. No carotid bruit. CHEST EXAMINATION: Lungs are clear to auscultation. No chest wall tenderness is noted on palpation or with deep breathing. HEART EXAMINATION: Regular rate and rhythm. S1, S2 heard. No murmurs, gallops or rub. ABDOMEN: Soft, nontender. Positive bowel sounds. EXTREMITIES: 2+ peripheral pulses, 1+ lower extremity edema and no calf tenderness. NEUROLOGIC EXAMINATION: Patient is awake, alert and oriented x3. ASSESSMENT Exertional shortness of breath and chest pain for the last few months, may be a component of heart failure or CAD. Coronary artery disease with chronic total occlusion of the RCA Urinary retention Acute on chronic diastolic heart failure Hypertension Dyslipidemia Mitral regurgitation Abnormal stress test February 2020 with fixed inferior wall with mild elslee- infarct ischemia PLAN Patient appears to have diuresed well and his lower extremity edema appears improved. Suspect he is near euvolemic with an additional component of chronic venous insufficiency. Patient does have some symptoms of chest pain with exertion as well as shortness of breath however has been going on for a few mo nths. Stress test did show possible leslee-infarct ischemia. We'll continue to treat with medical therapy and Imdur was increased to 60 mg daily. No further workup required as an inpatient and patient may follow-up with Dr. Kaye in 1-2 weeks. Objective - Vital Signs Vital signs: Vital Signs Temp 98.3 F 06/10/20 15:00 Pulse 76 06/10/20 15:26 Resp 16 06/10/20 15:00 BP 99/59 06/10/20 15:00 Pulse Ox 98 06/10/20 15:00 Intake & Output 06/09/20 06/10/20 06/10/20 18:59 06:59 18:59 Intake Total 1000 Output Total 1834 697 9840 Balance -22 -788 -0908 Weight 83.915 kg Intake: Oral 1000 Output: Urine 8806 [id number] [id number] Other: Voiding Method Indwelling Catheter Indwelling Catheter # Voids 300 300 - Labs CBC & Chem 7: 06/10/20 10:08 06/10/20 10:08 Labs: Abnormal Lab Results - Last 24 Hours (Table) 06/09/20 06/09/20 06/10/20 Range/Units 16:50 21:36 04:37 Sodium (137-145) mmol/L Chloride (98-107) mmol/L BUN (9-20) mg/dL Creatinine (0.66-1.25) mg/dL Glucose (74-99) mg/dL POC Glucose (mg/dL) 423 H 123 H 116 H (75-99) mg/dL 06/10/20 06/10/20 Range/Units 10:08 11:42 Sodium 135 L (137-145) mmol/L Chloride 94 L (98-107) mmol/L BUN 38 H (9-20) mg/dL Creatinine 1.31 H (0.66-1.25) mg/dL Glucose 169 H (74-99) mg/dL POC Glucose (mg/dL) 137 H (75-99) mg/dL
[2020-06-10 16:59] LABS: Glucose,Whole Blood 165 mg/dL (75-99)
[2020-06-10 21:10] LABS: Glucose,Whole Blood 190 mg/dL (75-99)
[2020-06-10] MEDS: ATORVASTATIN 40 MG TAB PO SCH (21:52)
[2020-06-10] MEDS: DONEPEZIL 10 MG TAB PO SCH (21:52)
[2020-06-10] MEDS: INSULIN DETEMIR (LEVEMIR) 100 UNIT/ML SYR SQ SCH (21:53)
[2020-06-11 07:19] LABS: Glucose,Whole Blood 80 mg/dL (75-99)
[2020-06-11] MEDS: metFORMIN 500 MG TAB PO SCH (07:27)
[2020-06-11] MEDS: PANTOPRAZOLE 40 MG TABLET PO SCH (07:27)
[2020-06-11] MEDS: INSULIN ASPART (NovoLOG) 100 UNIT/ML VIAL SQ SCH ×4 (07:54→12:30)
[2020-06-11] MEDS: HEPARIN SODIUM,PORCINE 5,000 UNIT/ML 1 ML VIAL SQ SCH (08:11)
[2020-06-11] MEDS: ASPIRIN 81 MG PO SCH (08:12)
[2020-06-11] MEDS: TAMSULOSIN 0.4 MG CAP.ER.24H PO SCH (08:12)
[2020-06-11] MEDS: ESCITALOPRAM 20 MG TAB PO SCH (08:12)
[2020-06-11] MEDS: METOPROLOL TARTRATE 25 MG TAB PO SCH (08:12)
[2020-06-11] MEDS: SPIRONOLACTONE 25 MG TAB PO SCH (08:12)
[2020-06-11] MEDS: BUMETANIDE 1 MG TAB PO SCH (08:12)
[2020-06-11] MEDS: GLIMEPIRIDE 4 MG TAB PO SCH (08:13)
[2020-06-11] MEDS: CARBIDOPA-LEVODOPA 25-100 MG 1 EACH TAB PO SCH ×2 (08:13→12:30)
[2020-06-11] MEDS: ISOSORBIDE MONONITRATE ER 60 MG TAB.ER.24H PO SCH (08:13)
[2020-06-11] MEDS: IPRATROPIUM-ALBUTEROL 3 ML NEB INHALATION SCH ×2 (08:31→12:17)
--- NOTE | 2020-06-11 09:24 | P.DS ---
Providers Date of admission: 06/09/20 09:09 Expected date of discharge: 06/11/20 Attending physician: Jay Gee Consults: 06/09/20 08:44 Consult Physician Routine Consulting Provider: Dangelo Wilcox Consult Reason/Comments: urinary retention Do you want consulting provider notified?: Yes 06/09/20 08:48 Consult Physician Routine Consulting Provider: Bobby Calderon Consult Reason/Comments: CHF Do you want consulting provider notified?: Yes Primary care physician: [facility] Course: History of present illness: 79-year-old male one of my office patient with past medical history of atherosclerotic heart disease, type 2 diabetes, Parkinson disease, hypertension, severe BPH who has been having significant problem with mobility lately with abnormal balance and gait developed to have worsening mental status in the last few days with low-grade temperature with frequency urgency with more hesitancy not been able to pass much urine at the time. Patient also has been having problem with edema and worsening symptom with congestive heart failure has not been taking his diuretics on regular basis. Patient has been having much worsening memory is Parkinson disease multiple falls lately, was seen and evaluated demurs department had significant urinary retention with Roberts catheter insertion had 850 mL collected right away his blood sugars mildly elevated urine was negative for infection blood sugar was mildly high at 298, his troponin was negative, Covid 19 was negative. 06/09/2020: Patient is found resting in chair comfortably without any complaints acute distress. 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 Patient currently has indwelling catheter in place that is draining clear yellow urine. Indwelling catheter to stay and upon discharge. Patient also is complaining of pain to the sacrum due to pressure ulcers. Patient was able to sleep in bed last night without any difficulties. WBC 8.8, hemoglobin 15.5, platelets 241, potassium 3.5, V1 25, creatinine 1.16. 06/10: She is found sitting up in a chair without any complaints or concerns. Patient states that he is feeling much better even compared to yesterday. He currently has an indwelling catheter in place draining clear yellow urine. Patient has been afebrile pulse rate 71, respirations 16 nonlabored, blood pressure 109/75 pulse ox 100% on room air. Echocardiogram conclusions: Left ventricle size is normal, there is borderline concentric left ventricle hypertrophy, overall left ventricle systolic dimension is normal with an EF between 6065%, aortic root is dilated measuring 3.8 cm, there is no pericardial effusion. 06/11: Patient has been seen by urology with plan to maintain Roberts catheter until seen in the office of urology. Patient is also been seen by cardiology with plan for follow-up with Dr. Kaye in one to 2 weeks. She has been afebrile, heart rate 66, blood pressure 115/57, pulse ox 95% on room air. His contacted via phone and updated regarding patient's plan. Wheelchair will be ordered in case management making arrangements. Patient will be discharged home today in stable condition. Assessment/plan: 1 metabolic encephalopathy secondary to urinary retention and worsening Parkinson disease 2 severe urinary retention: With possible prostatitis versus BPH symptoms 3 anasarca and worsening heart failure 4 severe hyperglycemia with type 2 diabetes 5 hypertension 6 hyperlipidemia 7 worsening Parkinson disease 8 worsening dementia: Has been treated as an Alzheimer disease 9 severe abnormal balance and gait 10 stage II chronic kidney disease 11. Stage II pressure ulcer Discharge plan: Home today. Wheelchair ordered. Patient requires a wheelchair to complete ADLs which is unable to be done with a cane or walker because of underlying Parkinson's. Patient is able to self propel. Impression and plan of care have been directed as dictated by the signing physician. Guerda Bass nurse practitioner acting as scribe for signing physician. Patient Condition at Discharge: Good Plan - Discharge Summary Discharge Rx Participant: No New Discharge Prescriptions: [place], Insulin Disposable [Bd Ultra-Fine Pen Needle 4mm 32g] 1 needle SQ DIRECTED #1 box Tamsulosin [Flomax] 0.4 mg PO PC-BRKFST #30 cap.er.24h Insulin Detemir [Levemir Flextouch] 10 units SQ HS #5 pen INSULIN ASPART (NovoLOG) [NovoLOG (formulary)] 0 unit SQ ACHS vial Insulin Aspart [NovoLOG Flexpen] 5 units SQ AC-TID #5 pen Continue Aspirin 81 mg PO DAILY Metoprolol Tartrate [Lopressor] 25 mg PO BID Isosorbide Mononitrate ER [Imdur] 60 mg PO DAILY Glimepiride [Amaryl] 4 mg PO BID Atorvastatin [Lipitor] 40 mg PO HS metFORMIN HCL [Glucophage] 500 mg PO BID amantadine HCL [Amantadine] 100 mg PO BID Bumetanide [BUMEX] 2 mg PO DAILY Carbidopa-Levodopa 25-100 mg [Sinemet 25-100 mg] 1 tab PO QID Donepezil [Aricept] 10 mg PO HS Escitalopram [Lexapro] 20 mg PO DAILY Nitroglycerin Sl Tabs [Nitrostat] 0.4 mg SL Q5M PRN PRN Reason: Chest Pain Spironolactone [Aldactone] 25 mg PO DAILY ALPRAZolam [Xanax] 0.25 mg PO BID PRN PRN Reason: Anxiety Discharge Medication List Aspirin 81 mg PO DAILY 10/20/13 [History] Metoprolol Tartrate [Lopressor] 25 mg PO BID 05/21/16 [History] Atorvastatin [Lipitor] 40 mg PO HS 12/14/17 [History] Glimepiride [Amaryl] 4 mg PO BID 12/14/17 [History] Isosorbide Mononitrate ER [Imdur] 60 mg PO DAILY 12/14/17 [History] metFORMIN HCL [Glucophage] 500 mg PO BID 12/14/17 [History] ALPRAZolam [Xanax] 0.25 mg PO BID PRN 06/08/20 [History] Bumetanide [BUMEX] 2 mg PO DAILY 06/08/20 [History] Carbidopa-Levodopa 25-100 mg [Sinemet 25-100 mg] 1 tab PO QID 06/08/20 [History] Donepezil [Aricept] 10 mg PO HS 06/08/20 [History] Escitalopram [Lexapro] 20 mg PO DAILY 06/08/20 [History] Nitroglycerin Sl Tabs [Nitrostat] 0.4 mg SL Q5M PRN 06/08/20 [History] Spironolactone [Aldactone] 25 mg PO DAILY 06/08/20 [History] amantadine HCL [Amantadine] 100 mg PO BID 06/08/20 [History] INSULIN ASPART (NovoLOG) [NovoLOG (formulary)] 0 unit SQ ACHS vial 06/11/20 [Rx] Insulin Aspart [NovoLOG Flexpen] 5 units SQ AC-TID #5 pen 06/11/20 [Rx] Insulin Detemir [Levemir Flextouch] 10 units SQ HS #5 pen 06/11/20 [Rx] [place], Insulin Disposable [Bd Ultra-Fine Pen Needle 4mm 32g] 1 needle SQ DIRECTED #1 box 06/11/20 [Rx] Tamsulosin [Flomax] 0.4 mg PO PC-BRKFST #30 cap.er.24h 06/11/20 [Rx] Follow up Appointment(s)/Referral(s): [facility], [NON-STAFF] - Maryann Kaye MD [STAFF PHYSICIAN] - 06/18/20 10:00 am (Appt is with Nickie GUSMAN) Sudhakar Wheeler MD [STAFF PHYSICIAN] - 1 Week (Office will call you with an appt.) Jay Gee MD [Primary Care Provider] - 06/13/20 10:30 am (Appt with Vandana GUSMAN) Patient Instructions/Handouts: Heart Failure (DC), Urinary Retention in Men (GEN) Activity/Diet/Wound Care/Special Instructions: Thera-honey dressing to pressure ulcer daily Wheelchair order faxed to [facility] Patient requires wheelchair at discharge to assist with ADLs secondary to Parkinsons. Patient can self propel chair. Discharge Disposition: HOME WITH HOME HEALTH SERVICES
[2020-06-11 09:41] VITALS: BP 115/57; PULSE 66; RESP 16; TEMP 97.7
[2020-06-11 11:08] LABS: Glucose,Whole Blood 165 mg/dL (75-99)
== END 2020-06-11 15:03 | disposition home health service (06) | DRG 291 ==
LOC: EC 11:15 → 1SOBS 14:37 → OBSVTOIN 06-09 09:09
PROVIDERS: ADMIT Internal Medicine Geriatric Medicine; ATTEND Internal Medicine Geriatric Medicine
DX: I13.0 Hypertensive heart and chronic kidney disease with heart failure and stage 1 through stage 4 chronic kidney disease, or unspecified chronic kidney disease (principal); I50.33 Acute on chronic diastolic (congestive) heart failure; G93.41 Metabolic encephalopathy; I25.110 Atherosclerotic heart disease of native coronary artery with unstable angina pectoris; I25.82 Chronic total occlusion of coronary artery; I34.0 Nonrheumatic mitral (valve) insufficiency; J44.9 Chronic obstructive pulmonary disease, unspecified; L89.322 Pressure ulcer of left buttock, stage 2; L89.312 Pressure ulcer of right buttock, stage 2; L89.159 Pressure ulcer of sacral region, unspecified stage; N18.2 Chronic kidney disease, stage 2 (mild); N39.41 Urge incontinence; N40.1 Benign prostatic hyperplasia with lower urinary tract symptoms; R29.6 Repeated falls; Z20.822 Contact with and (suspected) exposure to COVID-19; G20 Parkinson's disease; F32.9 Major depressive disorder, single episode, unspecified; G30.9 Alzheimer's disease, unspecified; E11.22 Type 2 diabetes mellitus with diabetic chronic kidney disease; E11.65 Type 2 diabetes mellitus with hyperglycemia; E78.5 Hyperlipidemia, unspecified; F02.80 Dementia in other diseases classified elsewhere, unspecified severity, without behavioral disturbance, psychotic disturbance, mood disturbance, and anxiety; Z79.82 Long term (current) use of aspirin; Z79.84 Long term (current) use of oral hypoglycemic drugs; Z79.899 Other long term (current) drug therapy; Z82.49 Family history of ischemic heart disease and other diseases of the circulatory system; Z87.891 Personal history of nicotine dependence; R26.9 Unspecified abnormalities of gait and mobility; N41.9 Inflammatory disease of prostate, unspecified; Z88.2 Allergy status to sulfonamides
CPT/HCPCS: 36415; 51702; 71046; 80053; 81003; 82550; 83880; 84484; 85025; 85027; 85610; 85730; 87635; 93005; 93306; 94640; 99285

== ENCOUNTER 2020-07-01 23:30 | Emergency (ER) | payer MEDICARE ==
[2020-07-01] MEDS ORDERED: SODIUM CHLORIDE 0.9% 500 ML 500 ML IV STA (23:50)
--- NOTE | 2020-07-02 00:30 | ED ---
General Adult HPI - General Chief complaint: Fall Stated complaint: Fall Time Seen by Provider: 07/01/20 23:34 Source: patient, EMS Mode of arrival: EMS Limitations: physical limitation - History of Present Illness Initial comments: 79 year-old male patient presents to the emergency department for evaluation after experiencing a fall at home. Patient states he was up in the bathroom with his walker, states he became dizzy and fell hitting his left ribs on the top. States he fell backwards then and hit his head on the floor. Denies loss of consciousness. Patient states he has been feeling a little more unsteady and dizzy over the last couple of days. States he was started on a new diuretic medication. Patient is currently reporting left rib pain especially with movement and touching over the area. Denies any headache, blurred vision, doub le vision. Denies any neck or back pain. States he does not take a blood thinning medication. Patient denies any recent rash, fever, chills, cough, shortness of breath, chest pain, abdominal pain, nausea, vomiting, diarrhea, constipation, numbness, tingling, hematuria, dysuria, urinary urgency, urinary frequency, or any other complaints. - Related Data Home Medications Medication Instructions Recorded Confirmed Aspirin 81 mg PO DAILY 10/20/13 06/08/20 Metoprolol Tartrate [Lopressor] 25 mg PO BID 05/21/16 06/08/20 Atorvastatin [Lipitor] 40 mg PO HS 12/14/17 06/08/20 Glimepiride [Amaryl] 4 mg PO BID 12/14/17 06/08/20 Isosorbide Mononitrate ER [Imdur] 60 mg PO DAILY 12/14/17 06/08/20 metFORMIN HCL [Glucophage] 500 mg PO BID 12/14/17 06/08/20 ALPRAZolam [Xanax] 0.25 mg PO BID PRN 06/08/20 06/08/20 Bumetanide [BUMEX] 2 mg PO DAILY 06/08/20 06/08/20 Carbidopa-Levodopa 25-100 mg 1 tab PO QID 06/08/20 06/08/20 [Sinemet 25-100 mg] Donepezil [Aricept] 10 mg PO HS 06/08/20 06/08/20 Escitalopram [Lexapro] 20 mg PO DAILY 06/08/20 06/08/20 Nitroglycerin Sl Tabs [Nitrostat] 0.4 mg SL Q5M PRN 06/08/20 06/08/20 Spironolactone [Aldactone] 25 mg PO DAILY 06/08/20 06/08/20 amantadine HCL [Amantadine] 100 mg PO BID 06/08/20 06/08/20 Previous Rx's Medication Instructions Recorded INSULIN ASPART (NovoLOG) [NovoLOG 0 unit SQ ACHS vial 06/11/20 (formulary)] Insulin Aspart [NovoLOG Flexpen] 5 units SQ AC-TID #5 pen 06/11/20 Insulin Detemir [Levemir Flextouch] 10 units SQ HS #5 pen 06/11/20 [place], Insulin Disposable [Bd 1 needle SQ DIRECTED #1 box 06/11/20 Ultra-Fine Pen Needle 4mm 32g] Tamsulosin [Flomax] 0.4 mg PO PC-BRKFST #30 cap.er.24h 06/11/20 Allergies Allergy/AdvReac Type Severity Reaction Status Date / Time Sulfa (Sulfonamide Allergy Rash/Hives Verified 07/01/20 23:42 Antibiotics) Review of Systems ROS Statement: Those systems with pertinent positive or pertinent negative responses have been documented in the HPI. ROS Other: All systems not noted in ROS Statement are negative. Past Medical History Past Medical History: Heart Failure, Diabetes Mellitus, Eye Disorder, GERD/Reflux, Hyperlipidemia, Hypertension, Musculoskeletal Disorder Additional Past Medical History / Comment(s): SHORTNESS OF BREATH, bilat cataracts History of Any Multi-Drug Resistant Organisms: None Reported Past Surgical History: Orthopedic Surgery Additional Past Surgical History / Comment(s): RT HAND CYST REMOVED. LT EYE SX R/T MUSCLE PROB. COLONOSCOPY. Past Anesthesia/Blood Transfusion Reactions: No Reported Reaction Past Psychological History: Depression Smoking Status: Former smoker Past Alcohol Use History: None Reported Past Drug Use History: None Reported - Past Family History Mother Family Medical History: Coronary Artery Disease (CAD) Additional Family Medical History / Comment(s): HX CABG, VALVE REPLACEMENT. General Exam Limitations: physical limitation General appearance: alert, in no apparent distress, other Eye exam: Present: normal appearance, PERRL, EOMI. Absent: scleral icterus, conjunctival injection, periorbital swelling ENT exam: Present: normal exam, normal oropharynx, mucous membranes moist Neck exam: Present: normal inspection, other (no cervical spinal tenderness noted to palpation. No bony step-off or deformity.). Absent: tenderness, meningismus, full ROM (soft collar in place), lymphadenopathy Respiratory exam: Present: normal lung sounds bilaterally, chest wall tenderness (left anterior lower ribs over the midclavicular line.). Absent: respiratory distress, wheezes, rales, rhonchi, stridor Cardiovascular Exam: Present: regular rate, normal rhythm, normal heart sounds. Absent: systolic murmur, diastolic murmur, rubs, gallop, clicks GI/Abdominal exam: Present: soft, normal bowel sounds. Absent: distended, tenderness, guarding, rebound, rigid Extremities exam: Present: normal inspection, full ROM, normal capillary refill. Absent: tenderness, pedal edema, joint swelling, calf tenderness Back exam: Present: normal inspection, other (Nontender, no step-off, no deformity to firm midline palpation of the thoracic and lumbar vertebrae. Full range of motion without pain or limitation.). Absent: vertebral tenderness Neurological exam: Present: alert, oriented X3, CN II-XII intact Psychiatric exam: Present: normal affect, normal mood Skin exam: Present: warm, dry, intact, normal color. Absent: rash Course Vital Signs 07/01/20 07/02/20 07/02/20 23:38 00:05 01:00 Temperature 98.4 F Pulse Rate 68 62 Respiratory 16 16 18 Rate Blood Pressure 124/67 113/59 O2 Sat by Pulse 95 Oximetry EKG Findings - EKG Comments: EKG Findings:: EKG obtained at 2340 shows normal sinus rhythm with a ventricular 65, CT interval 198, QRS duration 96, QT 392, QTc 407. No evidence of ST elevation or depression. Medical Decision Making - Medical Decision Making 79-year-old male patient presents to the emergency department today for evaluation of fall after becoming dizzy. Physical examination did reveal left- sided rib tenderness. No abdominal tenderness. He is neurologically intact with no focal deficits. Labs reviewed and did reveal elevated BUN at 37. Urinalysis unremarkable. CT brain C-spine is negative. Chest x-ray with left rib series is negative. Given patient's tenderness and rib pain we will give and sent a spirometer for breathing exercises to prevent pneumonia. He does feel comfortable being discharged home at this time. He is instructed to call his primary care physician first thing in the morning for further direction regarding his medication and for an appointment. Return parameters were discussed in detail. He verbalizes understanding and agrees with this plan. - Lab Data Result diagrams: 07/02/20 00:12 07/02/20 00:12 Lab Results 07/02/20 07/02/20 07/02/20 Range/Units 00:12 00:12 00:12 WBC 9.1 (3.8-10.6) k/uL RBC 4.54 (4.30-5.90) m/uL Hgb 13.5 (13.0-17.5) gm/dL Hct 40.3 (39.0-53.0) % MCV 88.9 (80.0-100.0) fL MCH 29.8 (25.0-35.0) pg MCHC 33.5 (31.0-37.0) g/dL RDW 13.8 (11.5-15.5) % Plt Count 252 (150-450) k/uL MPV 8.0 Neutrophils % 74 % Lymphocytes % 15 % Monocytes % 7 % Eosinophils % 3 % Basophils % 0 % Neutrophils # 6.7 (1.3-7.7) k/uL Lymphocytes # 1.3 (1.0-4.8) k/uL Monocytes # 0.7 (0-1.0) k/uL Eosinophils # 0.2 (0-0.7) k/uL Basophils # 0.0 (0-0.2) k/uL PT 10.6 (9.0-12.0) sec INR 1.0 (<1.2) APTT 23.4 (22.0-30.0) sec Sodium 138 (137-145) mmol/L Potassium 4.2 (3.5-5.1) mmol/L Chloride 99 (98-107) mmol/L Carbon Dioxide 28 (22-30) mmol/L Anion Gap 11 mmol/L BUN 37 H (9-20) mg/dL Creatinine 1.15 (0.66-1.25) mg/dL Est GFR (CKD-EPI)AfAm 70 (>60 ml/min/1.73 sqM) Est GFR (CKD-EPI)NonAf 60 (>60 ml/min/1.73 sqM) Glucose 119 H (74-99) mg/dL Plasma Lactic Acid [place] (0.7-2.0) mmol/L Calcium 9.2 (8.4-10.2) mg/dL Total Bilirubin 0.7 (0.2-1.3) mg/dL AST 36 (17-59) U/L ALT 15 (4-49) U/L Alkaline Phosphatase 71 (38-126) U/L Troponin I (0.000-0.034) ng/mL Total Protein 6.4 (6.3-8.2) g/dL Albumin 3.8 (3.5-5.0) g/dL Urine Color Urine Appearance (Clear) Urine pH (5.0-8.0) Ur Specific [place] (1.001-1.035) Urine Protein (Negative) Urine Glucose (UA) (Negative) Urine Ketones (Negative) Urine Blood (Negative) Urine Nitrite (Negative) Urine Bilirubin (Negative) Urine Urobilinogen (<2.0) mg/dL Ur Leukocyte Esterase (Negative) 07/02/20 07/02/20 07/02/20 Range/Units 00:12 00:12 01:04 WBC (3.8-10.6) k/uL RBC (4.30-5.90) m/uL Hgb (13.0-17.5) gm/dL Hct (39.0-53.0) % MCV (80.0-100.0) fL MCH (25.0-35.0) pg MCHC (31.0-37.0) g/dL RDW (11.5-15.5) % Plt Count (150-450) k/uL MPV Neutrophils % % Lymphocytes % % Monocytes % % Eosinophils % % Basophils % % Neutrophils # (1.3-7.7) k/uL Lymphocytes # (1.0-4.8) k/uL Monocytes # (0-1.0) k/uL Eosinophils # (0-0.7) k/uL Basophils # (0-0.2) k/uL PT (9.0-12.0) sec INR (<1.2) APTT (22.0-30.0) sec Sodium (137-145) mmol/L Potassium (3.5-5.1) mmol/L Chloride (98-107) mmol/L Carbon Dioxide (22-30) mmol/L Anion Gap mmol/L BUN (9-20) mg/dL Creatinine (0.66-1.25) mg/dL Est GFR (CKD-EPI)AfAm (>60 ml/min/1.73 sqM) Est GFR (CKD-EPI)NonAf (>60 ml/min/1.73 sqM) Glucose (74-99) mg/dL Plasma Lactic Acid [place] 1.5 (0.7-2.0) mmol/L Calcium (8.4-10.2) mg/dL Total Bilirubin (0.2-1.3) mg/dL AST (17-59) U/L ALT (4-49) U/L Alkaline Phosphatase (38-126) U/L Troponin I <0.012 (0.000-0.034) ng/mL Total Protein (6.3-8.2) g/dL Albumin (3.5-5.0) g/dL Urine Color Yellow Urine Appearance Clear (Clear) Urine pH 6.0 (5.0-8.0) Ur Specific [place] 1.017 (1.001-1.035) Urine Protein Negative (Negative) Urine Glucose (UA) Negative (Negative) Urine Ketones Negative (Negative) Urine Blood Negative (Negative) Urine Nitrite Negative (Negative) Urine Bilirubin Negative (Negative) Urine Urobilinogen <2.0 (<2.0) mg/dL Ur Leukocyte Esterase Negative (Negative) - Radiology Data Radiology results: report reviewed, image reviewed Two-view x-ray of the left ribs and chest are obtained. Report was reviewed in its entirety. Impression by Dr. Ng shows no acute osseous abnormalities. CT brain and C-spine without contrast was obtained. Report is reviewed in its entirety. Impression by Dr. Ng shows no acute hemorrhage, hydrocephalus, or mass effect. No acute fracture or subluxation cervical spine. Disposition Clinical Impression: Fall, Head injury, Rib pain on left side Disposition: HOME SELF-CARE Condition: Good Instructions (If sedation given, give patient instructions): Head Injury (ED), Rib Contusion (ED) Additional Instructions: Use the incentive spirometer as directed, take deep breaths frequently to prevent pneumonia. Call your primary care physician first thing Thursday morning for further instruction regarding her medications and to get an appointment for recheck in 1-2 days. Return to the emergency department for any new, worsening, or concerning symptoms. Referrals: Jay Gee MD [Primary Care Provider] - 1-2 days
[2020-07-02 00:40] LABS: Basophils % (A) 0 %; Eosinophils # (A) 0.2 k/uL (0-0.7); Eosinophils % (A) 3 %; HCT 40.3 % (39.0-53.0); HGB 13.5 gm/dL (13.0-17.5); Lymphocytes # (A) 1.3 k/uL (1.0-4.8); Lymphocytes % (A) 15 %; MCH 29.8 pg (25.0-35.0); MCHC 33.5 g/dL (31.0-37.0); MCV 88.9 fL (80.0-100.0); Monocytes # (A) 0.7 k/uL (0-1.0); Monocytes % (A) 7 %; Neutrophils # (A) 6.7 k/uL (1.3-7.7); Neutrophils % (A) 74 %; Platelet Count 252 k/uL (150-450); RBC 4.54 m/uL (4.30-5.90); RDW 13.8 % (11.5-15.5); WBC 9.1 k/uL (3.8-10.6)
[2020-07-02 00:45] LABS: Partial Thromboplastin Time 23.4 sec (22.0-30.0); Prothrombin Time 10.6 sec (9.0-12.0)
[2020-07-02 00:49] LABS: Albumin 3.8 g/dL (3.5-5.0); Calcium 9.2 mg/dL (8.4-10.2); Total Bilirubin 0.7 mg/dL (0.2-1.3); Total Protein 6.4 g/dL (6.3-8.2)
--- NOTE | 2020-07-02 00:52 | XR ---
EXAM: XR Left Ribs, 2 Views CLINICAL HISTORY: ITS.REASON XR Reason: Left rib tenderness TECHNIQUE: Frontal and oblique views of the left ribs. COMPARISON: 06/08/2020 FINDINGS: Lungs: No consolidation or mass. Pleural space: No effusion. Bones/joints: No acute fracture. No dislocation. IMPRESSION: No acute osseous abnormalities.
[2020-07-02 00:54] LABS: Potassium 4.2 mmol/L (3.5-5.1)
--- NOTE | 2020-07-02 01:05 | CT ---
EXAM: CT Head Without Intravenous Contrast CLINICAL HISTORY: ITS.REASON CT Reason: Fall/injury TECHNIQUE: Axial computed tomography images of the head/brain without intravenous contrast. CTDI is 29.785 mGy and DLP is 745.2 mGy-cm. This CT exam was performed using one or more of the following dose reduction techniques: automated exposure control, adjustment of the mA and/or kV according to patient size, and/or use of iterative reconstruction technique. COMPARISON: 06/08/2018 FINDINGS: Brain: No hemorrhage or mass effect. Mild cerebral volume loss. Ventricles: No hydrocephalus. Bones/joints: Unremarkable. Soft tissues: Unremarkable. Sinuses: Unremarkable. Mastoid air cells: Clear. IMPRESSION: No acute hemorrhage, hydrocephalus, or mass effect. EXAM: CT Cervical Spine Without Intravenous Contrast CLINICAL HISTORY: ITS.REASON CT Reason: Fall/injury TECHNIQUE: Axial computed tomography images of the cervical spine without intravenous contrast. CTDI is 29.785 mGy and DLP is 745.2 mGy-cm. This CT exam was performed using one or more of the following dose reduction techniques: automated exposure control, adjustment of the mA and/or kV according to patient size, and/or use of iterative reconstruction technique. COMPARISON: No relevant prior studies available. FINDINGS: Vertebrae: No acute fracture. Discs/spinal canal/neural foramina: Multilevel degenerative disc disease with mild spinal canal stenosis at C4-5 and C6-7. Soft tissues: No prevertebral swelling. IMPRESSION: No acute fracture or subluxation.
[2020-07-02 01:13] LABS: Appearance,Urine Clear (Clear); Bilirubin,Urine Negative (Negative); Blood,Urine Negative (Negative); Color,Urine Yellow; Glucose,Urine (UA) Negative (Negative); Ketones,Urine Negative (Negative); Leukocyte Esterase,Urine Negative (Negative); Nitrite,Urine Negative (Negative); Protein,Urine Negative (Negative); Specific Gravity,Urine 1.017 (1.001-1.035); Urobilinogen,Urine <2.0 mg/dL (<2.0)
[2020-07-02 01:44] VITALS: RESP 18
[2020-07-02 02:17] VITALS: BP 118/96; PULSE 64; TEMP 97.8
== END 2020-07-02 02:07 | disposition home or self-care (01) ==
LOC: EC 23:30
DX: S09.90XA Unspecified injury of head, initial encounter (principal); R07.81 Pleurodynia; R79.89 Other specified abnormal findings of blood chemistry; I11.0 Hypertensive heart disease with heart failure; I50.9 Heart failure, unspecified; E11.36 Type 2 diabetes mellitus with diabetic cataract; H26.9 Unspecified cataract; E78.5 Hyperlipidemia, unspecified; F32.9 Major depressive disorder, single episode, unspecified; K21.9 Gastro-esophageal reflux disease without esophagitis; Z79.899 Other long term (current) drug therapy; Z79.82 Long term (current) use of aspirin; Z79.84 Long term (current) use of oral hypoglycemic drugs; Z88.2 Allergy status to sulfonamides; Z87.891 Personal history of nicotine dependence; W18.30XA Fall on same level, unspecified, initial encounter; Y92.002 Bathroom of unspecified non-institutional (private) residence as the place of occurrence of the external cause
CPT/HCPCS: 36415; 70450; 72125; 80053; 81003; 83605; 84484; 85025; 85610; 85730; 93005; 99284

== ENCOUNTER 2020-10-18 09:50 | Day surgery (SDC) | payer MEDICARE ==
[2020-10-15 11:02] VITALS: BMI 25.7
--- NOTE | 2020-10-17 23:57 | P.HPIHPCON ---
History of Present Illness H&P Date: 10/16/20 Chief Complaint: Bladder Cancer This is an 79 yo male with hx of gross hematuria. He underwent a CT which showed evidence of bladder tumor, this was confirmed visually on cystoscopy. Of note his bladder tumor is in the anterior dome. Discussed with him the option of TURBT. Discussed will also do bilateral RP to evaluate his upper tract.Discussed the risk of bleeding, infection and bladder perforation. Discussed with him given the anterior location of the tumor there is potential that tumor might not be resectable. Also discussed given his comorbidity he is at an increased risk of medical complications. He understood all risks and agreed to proceed with to OR with TURBT and bilateral RP. Consent for Procedure: I have explained the operation/procedure to the patient, including the risks, benefits, side effects, alternative therapies (including not receiving the proposed treatment or service), the likelihood of the patient achieving his/her goals, and potential recuperation problems for the procedure/sedation/analgesia, as well as any blood products, if indicated. I also explained to the patient the risks, benefits and side effects of the alternatives, as well as the risks related to not receiving the proposed procedure, care, treatment, or services. Past Medical History Past Medical History: Heart Failure, Diabetes Mellitus, Eye Disorder, GERD/Reflux, Hyperlipidemia, Musculoskeletal Disorder Additional Past Medical History / Comment(s): [place] History of Any Multi-Drug Resistant Organisms: None Reported Past Surgical History: Orthopedic Surgery Additional Past Surgical History / Comment(s): RT HAND CYST REMOVED. LT EYE SX R/T Past Anesthesia/Blood Transfusion Reactions: No Reported Reaction Smoking Status: Former smoker - Past Family History Mother Family Medical History: Coronary Artery Disease (CAD) Additional Family Medical History / Comment(s): HX CABG, VALVE REPLACEMENT. Brother(s) Family Medical History: Cancer Additional Family Medical History / Comment(s): PANCREATIC Medications and Allergies Home Medications Medication Instructions Recorded Confirmed Type Aspirin 81 mg PO DAILY 10/20/13 10/15/20 History Metoprolol Tartrate [Lopressor] 25 mg PO BID 05/21/16 10/15/20 History Atorvastatin [Lipitor] 40 mg PO HS 12/14/17 10/15/20 History Glimepiride [Amaryl] 4 mg PO BID 12/14/17 10/15/20 History Isosorbide Mononitrate ER [Imdur] 60 mg PO DAILY 12/14/17 10/15/20 History metFORMIN HCL [Glucophage] 500 mg PO BID 12/14/17 10/15/20 History ALPRAZolam [Xanax] 0.25 mg PO BID PRN 06/08/20 10/15/20 History Bumetanide [BUMEX] 2 mg PO DAILY 06/08/20 10/15/20 History Carbidopa-Levodopa 25-100 mg 1 tab PO QID 06/08/20 10/15/20 History [Sinemet 25-100 mg] Donepezil [Aricept] 10 mg PO HS 06/08/20 10/15/20 History Escitalopram [Lexapro] 20 mg PO DAILY 06/08/20 10/15/20 History Nitroglycerin Sl Tabs [Nitrostat] 0.4 mg SL Q5M PRN 06/08/20 10/15/20 History Spironolactone [Aldactone] 25 mg PO DAILY 06/08/20 10/15/20 History amantadine HCL [Amantadine] 100 mg PO BID 06/08/20 10/15/20 History Insulin Detemir [Levemir Flextouch] 10 units SQ HS #5 pen 06/11/20 10/15/20 Rx Tamsulosin [Flomax] 0.4 mg PO PC-BRKFST #30 cap.er.24h 06/11/20 10/15/20 Rx INSULIN ASPART (NovoLOG) [NovoLOG 0 unit SQ TID-W/MEALS 10/15/20 10/15/20 History (formulary)] rOPINIRole HCL [Requip] 1 mg PO HS 10/15/20 10/15/20 History risperiDONE [RisperDAL] 0.5 mg PO HS 10/15/20 10/15/20 History Allergies Allergy/AdvReac Type Severity Reaction Status Date / Time Sulfa (Sulfonamide Allergy Rash/Hives Verified 10/15/20 10:30 Antibiotics) Surgical - Exam - General well developed, well nourished, no distress, no pain - Respiratory normal expansion, normal respiratory effort - Abdomen Abdomen: soft, non tender - Psychiatric oriented to time, oriented to person, oriented to place Assessment and Plan Assessment: OR for TURBT and bilateral RP
[~2020-10-18 09:50] MED LIST changes: +DEXAMETHASONE SOD PHOSPHATE 4 MG/ML 1 ML VIAL IV ONE; +HYDROmorphone 0.5 MG/0.5 ML SYRINGE IVP PRN; +LACTATED RINGERS 1,000 ML IV SCH; +ONDANSETRON 4 MG/2 ML VIAL IVP ONE; -REGADENOSON 0.4 MG/5 ML SYRINGE IV ONE
[2020-10-18 10:32] LABS: Glucose,Whole Blood 192 mg/dL (75-99)
[2020-10-18] MEDS ORDERED: MIDAZOLAM 2 MG/2 ML VIAL ONE (11:11)
[2020-10-18] MEDS ORDERED: PROPOFOL 10 MG/ML 20 ML VIAL IV ONE (11:11)
[2020-10-18] MEDS ORDERED: IOPAMIDOL-370 50ML BTL MISCELLANE ONE (11:40)
[2020-10-18 13:12] VITALS: TEMP 98.3
--- NOTE | 2020-10-18 13:12 | P.OP ---
Date of Procedure: 10/18/20 Preoperative Diagnosis: Bladder tumor Postoperative Diagnosis: Same Procedure(s) Performed: TURBT Clarge), bilateral retrograde Implants: none Anesthesia: ABIMBOLAA Surgeon: Sudhakar Wheeler Pathology: other (bladder tumor) Condition: stable Disposition: PACU Indications for Procedure: This is an 79 yo male with hx of gross hematuria. He underwent a CT which showed evidence of bladder tumor, this was confirmed visually on cystoscopy. Of note his bladder tumor is in the anterior dome. Discussed with him the option of TURBT. Discussed will also do bilateral RP to evaluate his upper tract.Discussed the risk of bleeding, infection and bladder perforation. Discussed with him given the anterior location of the tumor there is potential that tumor might not be resectable. Also discussed given his comorbidity he is at an increased risk of medical complications. He understood all risks and agreed to proceed with to OR with TURBT and bilateral RP. Operative Findings: large bladder tumor Description of Procedure: Patient was brought to the operating room, spinal anesthesia was induced. He was prepped and draped in sterile fashion a placement dorsal lithotomy position. Cystoscopy fitted with a 22-[place] sheath was inserted per urethra, cystoscopy was performed which showed a large tumor involving the anterior bladder dome, tumor measured approximately 8 centimeters. No additional satellite lesions were appreciated. Attention was then carried to the retrograde pyelogram, the right ureteral orifice was intubated with an open-ended catheter, retrograde pyelogram was performed which showed some narrowing in the proximal Ureter, but no hydronephrosis. There was adequate drainage of contrast and delayed imaging. Attention was then carried to the left ureteral orifice which was intubated with an open-ended catheter, retrograde pyelogram was performed which showed similar finding narrowing at the proximal ureter but no filling defects or hydronephrosis. Delayed imaging showed adequate drainage of contrast. At this time the cystoscope was withdrawn and a resectoscope fitted with a 25-[place]ian sheath was inserted per urethra. Using the bipolar resectoscope the tumor was resected down to muscle, hemostasis was achieved using electrocautery. Tumor chips were irrigated out, repeat cystoscopy showed no additional tumors or evidence of bleeding. At this time the resectoscope was withdrawn and a 22- [place] hematuria catheter was placed, catheter was irrigated without any difficulties, the urine was clear at the end of the case. Patient tolerated the procedure well was taken to PACU in stable condition
[2020-10-18 13:18] VITALS: RESP 16
[2020-10-18 13:18] LABS: Glucose,Whole Blood 196 mg/dL (75-99)
--- NOTE | 2020-10-18 14:08 | FL ---
Fluoroscopy HISTORY: Bladder tumor 1 minute 26 seconds fluoroscopy time supplied to the referring clinician. 10 intraoperative C-arm im ages document the procedure. See dictated report from urology.
[2020-10-18 15:04] VITALS: BP 118/66; PULSE 68
[2020-10-18 16:13] LABS: Glucose,Whole Blood 271 mg/dL (75-99)
[2020-10-18] MEDS ORDERED: INSULIN ASPART (NovoLOG) 100 UNIT/ML VIAL SQ ONE (16:19)
== END 2020-10-18 16:30 | disposition home or self-care (01) ==
LOC: OR 09:50
PROVIDERS: ATTEND Urology
DX: C67.1 Malignant neoplasm of dome of bladder (principal); E11.9 Type 2 diabetes mellitus without complications; K21.9 Gastro-esophageal reflux disease without esophagitis; E78.5 Hyperlipidemia, unspecified; G20 Parkinson's disease; I25.2 Old myocardial infarction; Z87.891 Personal history of nicotine dependence; I50.9 Heart failure, unspecified; Z79.4 Long term (current) use of insulin; Z79.899 Other long term (current) drug therapy; Z88.2 Allergy status to sulfonamides; Z98.890 Other specified postprocedural states
CPT/HCPCS: 88307; 74420; 52240; C1769; J2250; J1100; J0690; J2405; J2704; Q9967

== ENCOUNTER → 2020-11-21 | Outpatient (CLI) | payer MEDICARE ==
--- NOTE | 2020-11-22 03:32 | CT ---
EXAMINATION TYPE: CT ChestAbdPelvis wo/w con DATE OF EXAM: 11/21/2020 COMPARISON: 08/28/2016 and 09/09/2020 HISTORY: Malignant neoplasm of dome of bladder CT DLP: 1444.80 mGycm Automated exposure control for dose reduction was used. CONTRAST: Performed with IV Contrast, patient injected with 80 mL of Isovue 300. Images obtained from the thoracic inlet to the floor the pelvis without and with IV contrast. There i s also oral contrast. The lungs are clear of infiltrate. There is no evidence of a pulmonary mass. There is no pleural effu evan. Heart size is normal. There is some coronary artery calcification. There is no mediastinal robi opathy. There are no hilar masses. Liver spleen stomach gallbladder pancreas appear intact. The bile ducts are nondilated. Kidneys have normal size. There is normal contrast opacification of the kidneys. There is no hydronep hrosis. Ureters are not dilated. There is no retroperitoneal adenopathy. There is no evidence of a re nal calculus. Appendix appears normal. Delayed images show normal renal excretion. There is large area of wall thickening involving the dome of the urinary bladder. This measures up to 3.5 cm in thickness and consistent with tumor. There is no inguinal hernia. There is no free fluid in the pelvis. There is some prostate calcificati on. There is no mesenteric edema. There is no ascites or free air. There is no bowel obstruction. The lumbar vertebra have normal alignment. There is spurring of the thoracic spine. The posterior fay ments are intact. Bony pelvis is intact. The hip joints are intact. There is no hip dysplasia. Sternu m is intact. I see no evidence of a rib fracture. IMPRESSION: Large mass involving the dome of the urinary bladder is significantly increased in size compared to r ecent CT scan of 09/09/2020 and consistent with progression of tumor. No evidence of metastatic diseas e. Normal appendix.
== END | disposition home or self-care (01) ==
LOC: RADCTMAIN 17:16
PROVIDERS: ATTEND Radiology Radiation Oncology
DX: D41.4 Neoplasm of uncertain behavior of bladder (principal); C67.1 Malignant neoplasm of dome of bladder; N32.9 Bladder disorder, unspecified
CPT/HCPCS: 82565; 84520; 71270; 74178; 36415; Q9967